=== PATIENT | male | born 1955 | race Hispanic/Latino ===

== ENCOUNTER 2018-03-20 18:55 | Inpatient (IN) | payer SELFPAY ==
[~2018-03-20] VITALS: Ht 167.6 cm; Wt 82.9 kg
[~2018-03-20 18:55] MED LIST: AA8/1CAP3 PO; ACET1TAB12 PO; AMLO10TA6 PO; AMLO5TAB7 PO; AMOX-429 PO; DIGO250T84 PO; Folic Acid/Vitamin B Comp W-C PO; HYDR-4154 PO; MIRAUD PO; TAMS0.4C32 PO; super beta prostate PO
[2018-03-20] MEDS ORDERED: SODIUM CHLORIDE 0.9% 1000ML 2,000 ML IV ONE (19:54)
[2018-03-20] MEDS ORDERED: LACTULOSE 20 GM/30 ML UDCUP ONE (19:54)
[2018-03-20] MEDS ORDERED: ONDANSETRON HCL 4 MG/2 ML VIAL ONE (19:54)
[2018-03-20] MEDS ORDERED: MORPHINE SULFATE 4 MG/1ML SYG ONE (19:55)
[2018-03-20 19:58] LABS: APPEARANCE,URINE Clear (CLEAR); BILIRUBIN,URINE Negative (NEGATIVE); COLOR,URINE Yellow (YELLOW); GLUCOSE, URINE (UA) >=1000 mg/dL (NEGATIVE); KETONES,URINE Negative (NEGATIVE); LEUKOCYTE ESTERASE ,URINE Negative (NEGATIVE); NITRATE,URINE Negative (NEGATIVE); OCCULT BLOOD,URINE Negative (NEGATIVE); PH,URINE 5.5 (5.0-8.0); PROTEIN,URINE POS 2+ (NEGATIVE); UROBILINOGEN,URINE 0.2 mg/dL (0.2-1.0)
[2018-03-20 20:00] LABS: BASOPHILS % (AUTO) 0.6 % (0.0-5.0); HEMATOCRIT 32.9 % (42-54); LYMPHOCYTES % (AUTO) 14.4 % (21.0-51.0); MEAN CORPUSCULAR HEMOGLOBIN 32.1 pg (27.0-33.0); MEAN CORPUSCULAR HGB CONC 37.4 g/dL (32.0-36.0); MEAN CORPUSCULAR VOLUME 85.8 fL (79-99); MONOCYTES % (AUTO) 5.2 % (3.0-13.0); NEUTROPHILS % (AUTO) 77.8 % (40.0-77.0); PLATELET COUNT (AUTO) 197 K/uL (130-400); RED BLOOD CELL COUNT(AUTO) 3.83 MIL/uL (4.50-6.20); RED CELL DISTRIBUTION WIDTH 13.1 % (11.0-15.5); WHITE BLOOD COUNT (AUTO) 12.3 K/uL (4.8-10.8)
[2018-03-20 20:01] LABS: ABG OXYGEN SATURATION 94.9 % (95.0-99.0); BASE EXCESS,VENOUS BLOOD GAS -0.8 (-2.0-3.0); PCO2,VENOUS BLOOD GAS 40 (35-48); PH,VENOUS BLOOD GAS 7.396 (7.350-7.450)
[2018-03-20 20:09] LABS: BACTERIA,URINE Rare /HPF (None Seen); RBC,URINE None Seen /HPF (0-1); WBC,URINE 0-1 /HPF (0-1)
[2018-03-20 20:10] LABS: SQUAMOUS EPITHELIAL CELL,UR 0-2 /HPF (0-2)
[2018-03-20 20:16] LABS: ALBUMIN 2.6 g/dL (3.5-5.0); BILIRUBIN,TOTAL 1.1 mg/dL (0.2-1.0); CREATININE 3.1 mg/dL (0.5-1.5)
[2018-03-20 20:49] LABS: TOTAL PROTEIN, SERUM 4.8 g/dL (6.0-8.3)
[2018-03-20] MEDS ORDERED: INSULIN HUMULIN R 100 UNIT/ML 3ML ONE (21:03)
[2018-03-20 23:00] VITALS: BP 188/85
[2018-03-21] MEDS ORDERED: HYDROMORPHONE 1 MG/1 ML AMP ONE ×3 (00:32→17:10)
[2018-03-21] MEDS ORDERED: SODIUM CHLORIDE 0.9% 1000ML 1,000 ML IV SCH (00:36)
[2018-03-21] MEDS ORDERED: HYDROMORPHONE HCL 0.5 MG/0.5 ML ML IVP PRN (00:45)
[2018-03-21 02:15] VITALS: BP 144/77
[2018-03-21 03:42] VITALS: BP 151/72
[2018-03-21 06:14] LABS: HEMATOCRIT 31.5 % (42-54); MEAN CORPUSCULAR HEMOGLOBIN 31.2 pg (27.0-33.0); MEAN CORPUSCULAR HGB CONC 36.1 g/dL (32.0-36.0); MEAN CORPUSCULAR VOLUME 86.3 fL (79-99); PLATELET COUNT (AUTO) 195 K/uL (130-400); RED BLOOD CELL COUNT(AUTO) 3.65 MIL/uL (4.50-6.20); RED CELL DISTRIBUTION WIDTH 13.1 % (11.0-15.5); WHITE BLOOD COUNT (AUTO) 11.5 K/uL (4.8-10.8)
[2018-03-21] MEDS ORDERED: GLUCAGON 1MG KIT 1 MG ML IM PRN (06:15)
[2018-03-21] MEDS ORDERED: DEXTROSE 50%-WATER 50 ML DISP.SYRIN IV PRN (06:15)
[2018-03-21 06:24] LABS: ALBUMIN 2.4 g/dL (3.5-5.0); BILIRUBIN,TOTAL 0.3 mg/dL (0.2-1.0); CREATININE 2.7 mg/dL (0.5-1.5); POTASSIUM 4.4 mmol/L (3.5-5.1)
[2018-03-21 07:06] LABS: HEMOGLOBIN A1C 11.5 % (4.0-6.0)
[2018-03-21] MEDS: INSULIN HUMULIN R 100 UNIT/ML 3ML SQ SCH ×3 (07:08→16:30)
[2018-03-21] MEDS: LACTATED RINGERS 1000ML 1,000 ML IV SCH ×3 (07:15→23:15)
[2018-03-21 07:30] VITALS: BP 150/69
[2018-03-21 09:00] LABS: BAND NEUTROPHILS % (MANUAL) 1 % (0-2); LYMPHOCYTES % (MANUAL) 6 % (22-44); MAN.DIFF COMMENT-IMPRESSION MANUAL DIFFERENTIAL; MONOCYTES % (MANUAL) 2 % (2-9); PLATELET MORPHOLOGY COMMENT ADEQUATE; SEGMENTED NEUTROPHILS % 91 % (40-70)
[2018-03-21] MEDS: FAMOTIDINE/PF 20 MG/2 ML VIAL IV SCH (09:55)
[2018-03-21] MEDS: ENOXAPARIN SODIUM 30 MG/0.3 ML SQ SCH (09:56)
[2018-03-21] MEDS: HYDROMORPHONE 1 MG/1 ML AMP ONE ×2 (09:57→11:06)
[2018-03-21 11:00] VITALS: BP 152/74
[2018-03-21] MEDS ORDERED: HYDROXYZINE HCL 25 MG TABLET PO PRN (11:45)
[2018-03-21 16:00] VITALS: BP 144/76
[2018-03-21 20:00] VITALS: BP 167/78
[2018-03-21] MEDS: HYDROMORPHONE 1 MG/1 ML AMP IVP PRN (21:26)
[2018-03-22] VITALS: BP 163/81
[2018-03-22] MEDS ORDERED: LABETALOL 20 MG/4 ML DISP.SYRIN IV SCH (01:00)
[2018-03-22] MEDS: LACTATED RINGERS 1000ML 1,000 ML IV SCH ×3 (01:16→09:32)
[2018-03-22 04:00] VITALS: BP 158/70
[2018-03-22] MEDS: INSULIN HUMULIN R 100 UNIT/ML 3ML SQ SCH ×4 (06:00→18:00)
[2018-03-22 07:30] VITALS: BP 170/74
[2018-03-22] MEDS: ENOXAPARIN SODIUM 30 MG/0.3 ML SQ SCH (09:31)
[2018-03-22] MEDS: FAMOTIDINE/PF 20 MG/2 ML VIAL IV SCH (09:31)
[2018-03-22] MEDS: HYDROMORPHONE 1 MG/1 ML AMP IVP PRN ×2 (09:34→19:49)
[2018-03-22] MEDS ORDERED: DIATR MEGLU/DIATRIZOATE SODIUM 30 ML BOTTLE ONE (10:34)
[2018-03-22] MEDS ORDERED: IOHEXOL-350 75 ML VIAL IV ONE ×2 (10:34)
[2018-03-22 11:00] VITALS: BP 175/88
[2018-03-22] MEDS: LEVOFLOXACIN 500 MG/D5W 100 ML 100 ML IV SCH (11:33)
[2018-03-22] MEDS: METRONIDAZOLE 500MG/100ML BAG 100 ML IV SCH ×2 (13:08→19:49)
[2018-03-22 16:00] VITALS: BP 175/85
[2018-03-22] MEDS: ACETYLCYSTEINE 600 MG CAPSULE PO SCH (19:23)
[2018-03-22] MEDS: SODIUM CHLORIDE 0.9% 1000ML 1,000 ML IV SCH (19:23)
[2018-03-22 20:00] VITALS: BP 169/80
[2018-03-23] VITALS (8 sets, daily range): BP systolic 126–186; BP diastolic 54–87
[2018-03-23] MEDS: HYDROMORPHONE 1 MG/1 ML AMP IVP PRN ×2 (01:56→21:52)
[2018-03-23] MEDS ORDERED: LABETALOL 20 MG/4 ML DISP.SYRIN IV PRN (02:15)
[2018-03-23] MEDS: SODIUM CHLORIDE 0.9% 1000ML 1,000 ML IV SCH ×3 (04:16→14:30)
[2018-03-23 04:46] LABS: HEMATOCRIT 31.6 % (42-54); MEAN CORPUSCULAR HEMOGLOBIN 30.9 pg (27.0-33.0); MEAN CORPUSCULAR HGB CONC 35.9 g/dL (32.0-36.0); MEAN CORPUSCULAR VOLUME 86.1 fL (79-99); NUCLEATED RED BLOOD CELLS 0.1 % (0.0-0.19); PLATELET COUNT (AUTO) 156 K/uL (130-400); RED BLOOD CELL COUNT(AUTO) 3.68 MIL/uL (4.50-6.20); RED CELL DISTRIBUTION WIDTH 13.1 % (11.0-15.5); WHITE BLOOD COUNT (AUTO) 7.1 K/uL (4.8-10.8)
[2018-03-23 04:54] LABS: BAND NEUTROPHILS % (MANUAL) 1 % (0-2); BASOPHILS % (MANUAL) 1 % (0-2); EOSINOPHILS % (MANUAL) 7 % (1-6); LYMPHOCYTES % (MANUAL) 16 % (22-44); MAN.DIFF COMMENT-IMPRESSION MANUAL DIFFERENTIAL; MONOCYTES % (MANUAL) 6 % (2-9); PLATELET MORPHOLOGY COMMENT ADEQUATE; SEGMENTED NEUTROPHILS % 69 % (40-70)
[2018-03-23 05:07] LABS: ALBUMIN 2.3 g/dL (3.5-5.0); BILIRUBIN,TOTAL 0.4 mg/dL (0.2-1.0); CREATININE 2.3 mg/dL (0.5-1.5); MAGNESIUM 1.4 mg/dL (1.80-2.40); POTASSIUM 3.5 mmol/L (3.5-5.1); URIC ACID 6.8 mg/dL (2.6-7.2)
[2018-03-23] MEDS: METRONIDAZOLE 500MG/100ML BAG 100 ML IV SCH ×3 (05:13→21:41)
[2018-03-23] MEDS: INSULIN HUMULIN R 100 UNIT/ML 3ML SQ SCH ×5 (06:00→21:47)
[2018-03-23] MEDS: ACETAMINOPHEN-CODEINE 300/30MG TAB PO PRN ×2 (09:53→18:17)
[2018-03-23] MEDS: FOLIC ACID/VITAMIN B COMP W-C 1 MG CAPSULE PO SCH (09:53)
[2018-03-23] MEDS: FAMOTIDINE/PF 20 MG/2 ML VIAL IV SCH (09:53)
[2018-03-23] MEDS: LEVOFLOXACIN 500 MG/D5W 100 ML 100 ML IV SCH (09:53)
[2018-03-23] MEDS: CLONIDINE HCL 0.1 MG TABLET PO PRN ×2 (09:53→21:33)
[2018-03-23] MEDS: ACETYLCYSTEINE 600 MG CAPSULE PO SCH ×2 (09:53→21:33)
[2018-03-23] MEDS: ENOXAPARIN SODIUM 30 MG/0.3 ML SQ SCH (09:58)
[2018-03-23] MEDS ORDERED: MAGNESIUM 2GM PREMIX 50ML 50 ML IV SCH (15:00)
[2018-03-24 04:00] VITALS: BP 139/61
[2018-03-24 04:44] LABS: BASOPHILS % (AUTO) 0.4 % (0.0-5.0); EOSINOPHILS % (AUTO) 3.3 % (0.0-8.0); HEMATOCRIT 31.1 % (42-54); LYMPHOCYTES % (AUTO) 15.7 % (21.0-51.0); MEAN CORPUSCULAR HEMOGLOBIN 29.8 pg (27.0-33.0); MEAN CORPUSCULAR HGB CONC 34.7 g/dL (32.0-36.0); MONOCYTES % (AUTO) 9.6 % (3.0-13.0); PLATELET COUNT (AUTO) 148 K/uL (130-400); RED BLOOD CELL COUNT(AUTO) 3.62 MIL/uL (4.50-6.20); RED CELL DISTRIBUTION WIDTH 13.2 % (11.0-15.5); WHITE BLOOD COUNT (AUTO) 6.9 K/uL (4.8-10.8)
[2018-03-24 05:00] LABS: ALBUMIN 2.3 g/dL (3.5-5.0); BILIRUBIN,TOTAL 0.3 mg/dL (0.2-1.0); CREATININE 2.7 mg/dL (0.5-1.5); MAGNESIUM 1.9 mg/dL (1.80-2.40); POTASSIUM 3.8 mmol/L (3.5-5.1)
[2018-03-24] MEDS: METRONIDAZOLE 500MG/100ML BAG 100 ML IV SCH (06:26)
[2018-03-24] MEDS: INSULIN HUMULIN R 100 UNIT/ML 3ML SQ SCH ×3 (06:26→17:33)
[2018-03-24 08:27] VITALS: BP 162/67
[2018-03-24] MEDS ORDERED: METFORMIN HCL 500 MG TAB.SR.24H PO SCH (08:45)
[2018-03-24] MEDS ORDERED: LEVOFLOXACIN 500 MG TABLET PO SCH (09:00)
[2018-03-24] MEDS ORDERED: METRONIDAZOLE 500 MG TABLET PO SCH (09:00)
[2018-03-24] MEDS ORDERED: FAMOTIDINE 20MG TAB 20 MG TAB PO SCH (09:00)
[2018-03-24] MEDS ORDERED: INSULIN GLARGINE 100 UNITS/ML 10 ML VIAL SQ SCH (09:00)
[2018-03-24] MEDS: ACETYLCYSTEINE 600 MG CAPSULE PO SCH (09:58)
[2018-03-24] MEDS: ENOXAPARIN SODIUM 30 MG/0.3 ML SQ SCH (10:02)
[2018-03-24] MEDS: FOLIC ACID/VITAMIN B COMP W-C 1 MG CAPSULE PO SCH (10:02)
[2018-03-24 12:12] VITALS: BP 160/67
[2018-03-24] MEDS ORDERED: METR500T PO ×2 (16:51→16:52)
[2018-03-24] MEDS ORDERED: LEVO500T2 PO (16:51)
[2018-03-24 17:16] VITALS: BP 180/84
[2018-03-24] MEDS: HYDROMORPHONE 1 MG/1 ML AMP IVP PRN (17:21)
[2018-03-24 19:33] VITALS: BP 162/79
[2018-03-24] MEDS ORDERED: HYDRALAZINE HCL 25 MG TABLET PO SCH (21:00)
[2018-03-24] MEDS ORDERED: AMLODIPINE BESYLATE 5 MG TAB PO SCH (21:00)
[2018-03-25] MEDS ORDERED: DIGOXIN 250 MCG TABLET PO SCH (09:00)
[2018-03-25] MEDS ORDERED: TAMSULOSIN HCL 0.4 MG CAP.ER.24H PO SCH (09:00)
[2018-03-25] MEDS ORDERED: FOLIC ACID/VITAMIN B COMP W-C 1 MG CAPSULE PO SCH (09:00)
== END 2018-03-24 20:52 | disposition home or self-care (01) | DRG 682 ==
LOC: EDH 18:55 → EDHIP 18:56 → OBSVTOIN 18:56 → 3DH 22:32
PROVIDERS: ADMIT Hospitalist; ATTEND Hospitalist
PROC: 3E0234Z Introduction of Serum, Toxoid and Vaccine into Muscle, Percutaneous Approach (ICD-10-PCS; principal; 2018-03-21)
DX: N17.9 Acute kidney failure, unspecified (principal); K85.90 Acute pancreatitis without necrosis or infection, unspecified; N39.0 Urinary tract infection, site not specified; E87.1 Hypo-osmolality and hyponatremia; E87.2 Acidosis; J98.11 Atelectasis; E11.65 Type 2 diabetes mellitus with hyperglycemia; K57.90 Diverticulosis of intestine, part unspecified, without perforation or abscess without bleeding; E11.22 Type 2 diabetes mellitus with diabetic chronic kidney disease; D64.9 Anemia, unspecified; I12.9 Hypertensive chronic kidney disease with stage 1 through stage 4 chronic kidney disease, or unspecified chronic kidney disease; K76.0 Fatty (change of) liver, not elsewhere classified; N18.9 Chronic kidney disease, unspecified; N40.0 Benign prostatic hyperplasia without lower urinary tract symptoms; Z91.19 Patient's noncompliance with other medical treatment and regimen; Z87.442 Personal history of urinary calculi; Z90.49 Acquired absence of other specified parts of digestive tract; Z79.899 Other long term (current) drug therapy; Z83.3 Family history of diabetes mellitus; Z82.49 Family history of ischemic heart disease and other diseases of the circulatory system; Z82.3 Family history of stroke; Z87.891 Personal history of nicotine dependence; Z79.84 Long term (current) use of oral hypoglycemic drugs; Z23 Encounter for immunization
CPT/HCPCS: 36415; 36600; 74176; 74178; 76705; 80053; 81001; 82150; 82330; 82435; 82803; 82947; 82948; 83036; 83605; 83690; 83735; 84100; 84132; 84295; 84484; 84550; 85025; 87040; 93005; G0008; J1170; J1650; J1815; J1956; J2270; J2405; J3475; J3490; J7030; J7120; Q2038; Q9963; Q9967

== ENCOUNTER 2018-05-17 17:59 | Inpatient (IN) | payer SELFPAY ==
[~2018-05-17] VITALS: Ht 175.3 cm; Wt 80.9 kg
[~2018-05-17 17:59] MED LIST changes: -ACET1TAB12 PO; -AMLO10TA6 PO; -AMOX-429 PO; +LEVO500T2 PO; +METR500T PO; -super beta prostate PO
[2018-05-17] MEDS ORDERED: ONDANSETRON HCL 4 MG/2 ML VIAL ONE (18:33)
[2018-05-17] MEDS ORDERED: SODIUM CHLORIDE 0.9% 1000ML 1,000 ML IV ONE (18:33)
[2018-05-17] MEDS ORDERED: HYDROMORPHONE 1 MG/1 ML AMP ONE (18:34)
[2018-05-17 18:38] LABS: BASOPHILS % (AUTO) 0.9 % (0.0-5.0); EOSINOPHILS % (AUTO) 2.6 % (0.0-8.0); HEMATOCRIT 38.6 % (42-54); LYMPHOCYTES % (AUTO) 20.3 % (21.0-51.0); MEAN CORPUSCULAR HEMOGLOBIN 31.2 pg (27.0-33.0); MEAN CORPUSCULAR HGB CONC 35.2 g/dL (32.0-36.0); MEAN CORPUSCULAR VOLUME 88.6 fL (79-99); MONOCYTES % (AUTO) 8.5 % (3.0-13.0); NEUTROPHILS % (AUTO) 67.7 % (40.0-77.0); PLATELET COUNT (AUTO) 247 K/uL (130-400); RED BLOOD CELL COUNT(AUTO) 4.35 MIL/uL (4.50-6.20); WHITE BLOOD COUNT (AUTO) 9.4 K/uL (4.8-10.8)
[2018-05-17 18:54] LABS: CREATININE 2.8 mg/dL (0.5-1.5); POTASSIUM 4.3 mmol/L (3.5-5.1)
[2018-05-17 18:58] LABS: ALBUMIN 3.4 g/dL (3.5-5.0); BILIRUBIN,TOTAL 0.2 mg/dL (0.2-1.0); TOTAL PROTEIN, SERUM 6.9 g/dL (6.0-8.3)
[2018-05-17] MEDS ORDERED: ACETAMINOPHEN 325 MG TAB PO PRN (19:45)
[2018-05-17] MEDS ORDERED: AMLODIPINE BESYLATE 5 MG TAB PO ONE (20:12)
[2018-05-17] MEDS ORDERED: MORPHINE SULFATE 4 MG/1ML SYG ONE (20:13)
[2018-05-17] MEDS ORDERED: FAMOTIDINE/PF 20 MG/2 ML VIAL IV ONE (20:14)
[2018-05-17] MEDS: AMLODIPINE BESYLATE 5 MG TAB PO SCH (21:00)
[2018-05-17] MEDS: HYDRALAZINE HCL 25 MG TABLET PO SCH (21:00)
[2018-05-17 21:45] VITALS: BP 180/84
[2018-05-17] MEDS ORDERED: CLONIDINE HCL 0.1 MG TABLET ONE (22:29)
[2018-05-17] MEDS ORDERED: LORAZEPAM 2 MG/ML 1 ML VIAL IVP PRN (22:30)
[2018-05-17] MEDS: SODIUM CHLORIDE 0.9% 1000ML 1,000 ML IV SCH (22:35)
[2018-05-17] MEDS: ONDANSETRON HCL 4 MG/2 ML VIAL IV PRN (23:11)
[2018-05-17] MEDS ORDERED: LISI40TA4 PO (23:29)
[2018-05-17] MEDS ORDERED: METF-444 PO (23:29)
[2018-05-17] MEDS ORDERED: GABA-531 PO (23:31)
[2018-05-18] VITALS (7 sets, daily range): BP systolic 138–176; BP diastolic 69–82
[2018-05-18] MEDS: MORPHINE SULFATE 4 MG/1ML SYG IV PRN ×3 (00:36→22:56)
[2018-05-18 05:18] LABS: BASOPHILS % (AUTO) 0.5 % (0.0-5.0); EOSINOPHILS % (AUTO) 2.3 % (0.0-8.0); HEMATOCRIT 34.2 % (42-54); LYMPHOCYTES % (AUTO) 17.1 % (21.0-51.0); MEAN CORPUSCULAR HEMOGLOBIN 31.2 pg (27.0-33.0); MEAN CORPUSCULAR HGB CONC 35.3 g/dL (32.0-36.0); MEAN CORPUSCULAR VOLUME 88.3 fL (79-99); MONOCYTES % (AUTO) 7.3 % (3.0-13.0); NEUTROPHILS % (AUTO) 72.8 % (40.0-77.0); PLATELET COUNT (AUTO) 208 K/uL (130-400); RED BLOOD CELL COUNT(AUTO) 3.87 MIL/uL (4.50-6.20); RED CELL DISTRIBUTION WIDTH 15.3 % (11.0-15.5); WHITE BLOOD COUNT (AUTO) 8.9 K/uL (4.8-10.8)
[2018-05-18 05:31] LABS: ALBUMIN 2.8 g/dL (3.5-5.0); BILIRUBIN,TOTAL 0.3 mg/dL (0.2-1.0); CREATININE 2.6 mg/dL (0.5-1.5); POTASSIUM 4.5 mmol/L (3.5-5.1); TOTAL PROTEIN, SERUM 6.1 g/dL (6.0-8.3)
[2018-05-18] MEDS: SODIUM CHLORIDE 0.9% 1000ML 1,000 ML IV SCH (07:20)
[2018-05-18 09:24] LABS: CHOLESTEROL 226 mg/dL (<200); HDL CHOLESTEROL 22 mg/dL (29-71); LDL DIRECT 58 mg/dL (0-99); TRIGLYCERIDES 971 mg/dL (30-200)
[2018-05-18] MEDS: LACTATED RINGERS 1000ML 1,000 ML IV SCH ×3 (09:38→21:17)
[2018-05-18] MEDS: HYDRALAZINE HCL 25 MG TABLET PO SCH ×2 (09:39→21:12)
[2018-05-18] MEDS: ENOXAPARIN SODIUM 30 MG/0.3 ML SQ SCH (09:39)
[2018-05-18] MEDS: TAMSULOSIN HCL 0.4 MG CAP.ER.24H PO SCH (09:40)
[2018-05-18] MEDS: AMLODIPINE BESYLATE 5 MG TAB PO SCH ×2 (09:40→21:12)
[2018-05-18] MEDS: FAMOTIDINE/PF 20 MG/2 ML VIAL IV SCH (09:40)
[2018-05-18] MEDS ORDERED: KETOROLAC TROMETHAMINE 15MG/ML IV SCH (14:30)
[2018-05-18] MEDS: DIGOXIN 250 MCG TABLET PO SCH (16:00)
[2018-05-19] VITALS (7 sets, daily range): BP systolic 140–176; BP diastolic 53–77
[2018-05-19] MEDS: CLONIDINE HCL 0.1 MG TABLET PO PRN (00:21)
[2018-05-19 04:25] LABS: BASOPHILS % (AUTO) 0.7 % (0.0-5.0); HEMATOCRIT 35.7 % (42-54); LYMPHOCYTES % (AUTO) 24.4 % (21.0-51.0); MEAN CORPUSCULAR HEMOGLOBIN 30.4 pg (27.0-33.0); MEAN CORPUSCULAR HGB CONC 34.4 g/dL (32.0-36.0); MEAN CORPUSCULAR VOLUME 88.4 fL (79-99); MONOCYTES % (AUTO) 8.6 % (3.0-13.0); NEUTROPHILS % (AUTO) 63.3 % (40.0-77.0); NUCLEATED RED BLOOD CELLS 0.1 % (0.0-0.19); PLATELET COUNT (AUTO) 185 K/uL (130-400); RED BLOOD CELL COUNT(AUTO) 4.04 MIL/uL (4.50-6.20); RED CELL DISTRIBUTION WIDTH 15.1 % (11.0-15.5)
[2018-05-19 04:48] LABS: CREATININE 2.7 mg/dL (0.5-1.5); POTASSIUM 4.4 mmol/L (3.5-5.1)
[2018-05-19] MEDS: AMLODIPINE BESYLATE 5 MG TAB PO SCH ×2 (09:42→23:05)
[2018-05-19] MEDS: TAMSULOSIN HCL 0.4 MG CAP.ER.24H PO SCH (09:42)
[2018-05-19] MEDS: HYDRALAZINE HCL 25 MG TABLET PO SCH ×2 (09:46→23:06)
[2018-05-19] MEDS: FAMOTIDINE/PF 20 MG/2 ML VIAL IV SCH (09:46)
[2018-05-19] MEDS: MORPHINE SULFATE 4 MG/1ML SYG IV PRN (09:47)
[2018-05-19] MEDS: ENOXAPARIN SODIUM 30 MG/0.3 ML SQ SCH (09:48)
[2018-05-19] MEDS: LACTULOSE 20 GM/30 ML UDCUP PO PRN (09:51)
[2018-05-19] MEDS: LACTATED RINGERS 1000ML 1,000 ML IV SCH ×2 (09:54→23:06)
[2018-05-19] MEDS ORDERED: PHARMACY COMMUNICATION MISC SCH (12:00)
[2018-05-19] MEDS: ONDANSETRON HCL 4 MG/2 ML VIAL IV PRN (12:21)
[2018-05-19] MEDS ORDERED: DIPHENHYDRAMINE HCL 2% 30 GM CREAM.GM. TP PRN (12:30)
[2018-05-19] MEDS: FENOFIBRATE NANOCRYSTALLIZED 48 MG TAB PO SCH (13:48)
[2018-05-19] MEDS: DIGOXIN 250 MCG TABLET PO SCH (17:10)
[2018-05-19] MEDS ORDERED: GLUCAGON 1MG KIT 1 MG ML IM PRN (22:00)
[2018-05-19] MEDS ORDERED: DEXTROSE 50%-WATER 50 ML DISP.SYRIN IV PRN (22:00)
[2018-05-20] VITALS (7 sets, daily range): BP systolic 152–181; BP diastolic 70–78
[2018-05-20 04:42] LABS: BASOPHILS % (AUTO) 0.8 % (0.0-5.0); EOSINOPHILS % (AUTO) 2.4 % (0.0-8.0); HEMATOCRIT 35.6 % (42-54); LYMPHOCYTES % (AUTO) 20.2 % (21.0-51.0); MEAN CORPUSCULAR VOLUME 88.5 fL (79-99); MONOCYTES % (AUTO) 9.9 % (3.0-13.0); NEUTROPHILS % (AUTO) 66.7 % (40.0-77.0); NUCLEATED RED BLOOD CELLS 0.1 % (0.0-0.19); PLATELET COUNT (AUTO) 218 K/uL (130-400); RED BLOOD CELL COUNT(AUTO) 4.02 MIL/uL (4.50-6.20); WHITE BLOOD COUNT (AUTO) 7.9 K/uL (4.8-10.8)
[2018-05-20 04:51] LABS: HEMOGLOBIN A1C 7.4 % (4.0-6.0)
[2018-05-20 04:54] LABS: CREATININE 2.8 mg/dL (0.5-1.5); POTASSIUM 4.2 mmol/L (3.5-5.1)
[2018-05-20] MEDS: INSULIN HUMULIN R 100 UNIT/ML 3ML SQ SCH ×4 (07:14→21:01)
[2018-05-20] MEDS: FENOFIBRATE NANOCRYSTALLIZED 48 MG TAB PO SCH (10:33)
[2018-05-20] MEDS: AMLODIPINE BESYLATE 5 MG TAB PO SCH ×2 (10:33→20:59)
[2018-05-20] MEDS: FAMOTIDINE/PF 20 MG/2 ML VIAL IV SCH (10:33)
[2018-05-20] MEDS: HYDRALAZINE HCL 25 MG TABLET PO SCH ×2 (10:33→20:59)
[2018-05-20] MEDS: TAMSULOSIN HCL 0.4 MG CAP.ER.24H PO SCH (10:33)
[2018-05-20] MEDS: ENOXAPARIN SODIUM 30 MG/0.3 ML SQ SCH (10:39)
[2018-05-20] MEDS: LACTATED RINGERS 1000ML 1,000 ML IV SCH ×3 (11:03→21:21)
[2018-05-20] MEDS: DIGOXIN 250 MCG TABLET PO SCH (16:00)
[2018-05-20] MEDS: MORPHINE SULFATE 4 MG/1ML SYG IV PRN (17:18)
[2018-05-20] MEDS: CLONIDINE HCL 0.1 MG TABLET PO PRN (23:54)
[2018-05-21] VITALS (7 sets, daily range): BP systolic 144–188; BP diastolic 59–85
[2018-05-21 05:10] LABS: BASOPHILS % (AUTO) 0.6 % (0.0-5.0); EOSINOPHILS % (AUTO) 2.4 % (0.0-8.0); HEMATOCRIT 35.5 % (42-54); MEAN CORPUSCULAR HEMOGLOBIN 30.3 pg (27.0-33.0); MEAN CORPUSCULAR HGB CONC 34.8 g/dL (32.0-36.0); NUCLEATED RED BLOOD CELLS 0.1 % (0.0-0.19); PLATELET COUNT (AUTO) 201 K/uL (130-400); RED BLOOD CELL COUNT(AUTO) 4.07 MIL/uL (4.50-6.20); RED CELL DISTRIBUTION WIDTH 15.1 % (11.0-15.5); WHITE BLOOD COUNT (AUTO) 7.5 K/uL (4.8-10.8)
[2018-05-21] MEDS: LACTATED RINGERS 1000ML 1,000 ML IV SCH ×2 (05:45→16:32)
[2018-05-21] MEDS: INSULIN HUMULIN R 100 UNIT/ML 3ML SQ SCH ×4 (06:16→21:00)
[2018-05-21] MEDS: FENOFIBRATE NANOCRYSTALLIZED 48 MG TAB PO SCH (09:45)
[2018-05-21] MEDS: AMLODIPINE BESYLATE 5 MG TAB PO SCH ×2 (09:45→20:19)
[2018-05-21] MEDS: TAMSULOSIN HCL 0.4 MG CAP.ER.24H PO SCH (09:45)
[2018-05-21] MEDS: HYDRALAZINE HCL 25 MG TABLET PO SCH ×2 (09:45→20:20)
[2018-05-21] MEDS: FAMOTIDINE/PF 20 MG/2 ML VIAL IV SCH (09:46)
[2018-05-21] MEDS: ENOXAPARIN SODIUM 30 MG/0.3 ML SQ SCH (09:46)
[2018-05-21] MEDS: DIGOXIN 250 MCG TABLET PO SCH (16:00)
[2018-05-21] MEDS: LACTULOSE 20 GM/30 ML UDCUP PO PRN (18:32)
[2018-05-21] MEDS: CLONIDINE HCL 0.1 MG TABLET PO PRN (21:40)
[2018-05-22] MEDS: LACTATED RINGERS 1000ML 1,000 ML IV SCH ×3 (01:44→22:08)
[2018-05-22 03:18] VITALS: BP 155/58
[2018-05-22] MEDS: INSULIN HUMULIN R 100 UNIT/ML 3ML SQ SCH ×4 (06:18→20:08)
[2018-05-22 07:00] VITALS: BP 149/73
[2018-05-22] MEDS: FENOFIBRATE NANOCRYSTALLIZED 48 MG TAB PO SCH (08:57)
[2018-05-22] MEDS: FAMOTIDINE/PF 20 MG/2 ML VIAL IV SCH (08:57)
[2018-05-22] MEDS: AMLODIPINE BESYLATE 5 MG TAB PO SCH ×2 (08:57→20:04)
[2018-05-22] MEDS: HYDRALAZINE HCL 25 MG TABLET PO SCH ×2 (08:57→20:04)
[2018-05-22] MEDS: TAMSULOSIN HCL 0.4 MG CAP.ER.24H PO SCH (08:57)
[2018-05-22] MEDS: ENOXAPARIN SODIUM 30 MG/0.3 ML SQ SCH (09:01)
[2018-05-22 11:00] VITALS: BP 140/72
[2018-05-22] MEDS: MORPHINE SULFATE 4 MG/1ML SYG IV PRN ×3 (11:54→23:52)
[2018-05-22 16:00] VITALS: BP 156/82
[2018-05-22] MEDS: DIGOXIN 250 MCG TABLET PO SCH (16:00)
[2018-05-22 20:00] VITALS: BP 157/75
[2018-05-22] MEDS: ONDANSETRON HCL 4 MG/2 ML VIAL IV PRN (20:03)
[2018-05-22 23:30] VITALS: BP 174/76
[2018-05-22] MEDS: CLONIDINE HCL 0.1 MG TABLET PO PRN (23:51)
[2018-05-23 04:00] VITALS: BP 135/63
[2018-05-23] MEDS: INSULIN HUMULIN R 100 UNIT/ML 3ML SQ SCH ×3 (05:57→16:30)
[2018-05-23] MEDS: LACTATED RINGERS 1000ML 1,000 ML IV SCH (06:07)
[2018-05-23 07:30] VITALS: BP 171/78
[2018-05-23] MEDS ORDERED: FENO48TA15 PO (08:24)
[2018-05-23] MEDS: TAMSULOSIN HCL 0.4 MG CAP.ER.24H PO SCH (09:35)
[2018-05-23] MEDS: AMLODIPINE BESYLATE 5 MG TAB PO SCH (09:35)
[2018-05-23] MEDS: HYDRALAZINE HCL 25 MG TABLET PO SCH (09:35)
[2018-05-23] MEDS: FAMOTIDINE/PF 20 MG/2 ML VIAL IV SCH (09:36)
[2018-05-23] MEDS: ENOXAPARIN SODIUM 30 MG/0.3 ML SQ SCH (09:36)
[2018-05-23] MEDS: FENOFIBRATE NANOCRYSTALLIZED 48 MG TAB PO SCH (09:50)
[2018-05-23] MEDS: LACTULOSE 20 GM/30 ML UDCUP PO PRN (09:50)
[2018-05-23 11:00] VITALS: BP 172/79
[2018-05-23 16:00] VITALS: BP 179/75
[2018-05-23] MEDS: DIGOXIN 250 MCG TABLET PO SCH (16:00)
== END 2018-05-23 19:55 | disposition home or self-care (01) | DRG 439 ==
LOC: EDH 17:59 → OBSVTOIN 18:00 → EDHIP 18:00 → INTOOBSV 18:00 → 3CH 21:01
PROVIDERS: ADMIT Internal Medicine; ATTEND Internal Medicine
DX: K85.90 Acute pancreatitis without necrosis or infection, unspecified (principal); J98.11 Atelectasis; J20.9 Acute bronchitis, unspecified; E78.5 Hyperlipidemia, unspecified; E78.1 Pure hyperglyceridemia; E11.9 Type 2 diabetes mellitus without complications; E86.1 Hypovolemia; I10 Essential (primary) hypertension; L92.9 Granulomatous disorder of the skin and subcutaneous tissue, unspecified; L25.8 Unspecified contact dermatitis due to other agents; F17.210 Nicotine dependence, cigarettes, uncomplicated; Z87.442 Personal history of urinary calculi; Z82.3 Family history of stroke; Z83.3 Family history of diabetes mellitus; Z82.49 Family history of ischemic heart disease and other diseases of the circulatory system
CPT/HCPCS: 36415; 71045; 71250; 74150; 80048; 80053; 80061; 80162; 82150; 82948; 83036; 83605; 83690; 84484; 85025; 93005; J1170; J1650; J1815; J1885; J2270; J2405; J3490; J7030; J7120

== ENCOUNTER 2018-06-14 14:09 | Inpatient (IN) | payer SELFPAY ==
[~2018-06-14] VITALS: Ht 175.3 cm; Wt 83.2 kg
[~2018-06-14 14:09] MED LIST changes: -AA8/1CAP3 PO; +FENO48TA15 PO; -Folic Acid/Vitamin B Comp W-C PO; +GABA-531 PO; -LEVO500T2 PO; +LISI40TA4 PO; +METF-444 PO; -METR500T PO; -MIRAUD PO
[2018-06-14 15:10] LABS: BASOPHILS % (AUTO) 0.3 % (0.0-5.0); EOSINOPHILS % (AUTO) 1.4 % (0.0-8.0); LYMPHOCYTES % (AUTO) 12.4 % (21.0-51.0); MEAN CORPUSCULAR HEMOGLOBIN 30.3 pg (27.0-33.0); MEAN CORPUSCULAR HGB CONC 34.7 g/dL (32.0-36.0); MEAN CORPUSCULAR VOLUME 87.4 fL (79-99); MONOCYTES % (AUTO) 8.4 % (3.0-13.0); NEUTROPHILS % (AUTO) 77.5 % (40.0-77.0); NUCLEATED RED BLOOD CELLS 0.1 % (0.0-0.19); PLATELET COUNT (AUTO) 195 K/uL (130-400); RED BLOOD CELL COUNT(AUTO) 4.23 MIL/uL (4.50-6.20)
[2018-06-14] MEDS ORDERED: IOHEXOL-350 75 ML VIAL IV ONE (15:16)
[2018-06-14 15:19] LABS: BILIRUBIN,URINE Negative (NEGATIVE); COLOR,URINE Dark Yellow (YELLOW); GLUCOSE, URINE (UA) TRACE mg/dL (NEGATIVE); KETONES,URINE Negative (NEGATIVE); LEUKOCYTE ESTERASE ,URINE Negative (NEGATIVE); NITRATE,URINE Positive (NEGATIVE); OCCULT BLOOD,URINE Negative (NEGATIVE); PH,URINE 5.5 (5.0-8.0); PROTEIN,URINE 300 (NEGATIVE)
[2018-06-14 15:21] LABS: CREATININE 3.2 mg/dL (0.5-1.5); POTASSIUM 4.2 mmol/L (3.5-5.1)
[2018-06-14 15:22] LABS: APPEARANCE,URINE SLIGHTLY CLOUDY (CLEAR)
[2018-06-14 15:25] LABS: ALBUMIN 3.2 g/dL (3.5-5.0); BILIRUBIN,TOTAL 0.4 mg/dL (0.2-1.0)
[2018-06-14 15:34] LABS: RBC,URINE 0-1 /HPF (0-1); WBC,URINE 0-1 /HPF (0-1)
[2018-06-14 15:35] LABS: BACTERIA,URINE Rare /HPF (None Seen); SQUAMOUS EPITHELIAL CELL,UR Rare /HPF (0-2)
[2018-06-14 15:37] LABS: AMORPHOUS SEDIMENT,UR Rare /LPF (None Seen)
[2018-06-14] MEDS ORDERED: METRONIDAZOLE 500MG/100ML BAG 100 ML ONE (17:07)
[2018-06-14] MEDS ORDERED: SODIUM CHLORIDE 0.9% 1000ML 1,000 ML IV ONE (17:07)
[2018-06-14] MEDS ORDERED: ONDANSETRON HCL 4 MG/2 ML VIAL ONE (17:07)
[2018-06-14] MEDS ORDERED: MORPHINE SULFATE 4 MG/1ML SYG ONE (17:08)
[2018-06-14] MEDS ORDERED: MORPHINE SULFATE 4 MG/1ML SYG IV PRN (18:45)
[2018-06-14] MEDS ORDERED: MORPHINE SULFATE 2 MG/ML 1ML SYG IV PRN (18:45)
[2018-06-14] MEDS ORDERED: ACETAMINOPHEN 325 MG TAB PO PRN (18:45)
[2018-06-14 19:20] LABS: HEMOGLOBIN A1C 7.2 % (4.0-6.0)
[2018-06-14 19:27] LABS: % IRON SATURATION 13.1 % (30-44)
[2018-06-14 20:45] VITALS: BP 161/69
[2018-06-14] MEDS ORDERED: INSULIN HUMULIN R 100 UNIT/ML 3ML SQ SCH (21:00)
[2018-06-14] MEDS ORDERED: DEXTROSE 50%-WATER 50 ML DISP.SYRIN IV PRN (21:15)
[2018-06-14] MEDS ORDERED: LEVOFLOXACIN 750 MG/D5W 150 ML 150 ML IV SCH (21:15)
[2018-06-14] MEDS ORDERED: GLUCAGON 1MG KIT 1 MG ML IM PRN (21:15)
[2018-06-14] MEDS ORDERED: COMPOUND IV MISC 1 EACH IVSOLN MISC PRN (21:30)
[2018-06-14] MEDS: SODIUM CHLORIDE 0.9% 1000ML 1,000 ML IV SCH (21:59)
[2018-06-14] MEDS: METRONIDAZOLE 500MG/100ML BAG 100 ML IV SCH (22:00)
[2018-06-14] MEDS ORDERED: HYDROMORPHONE 1 MG/1 ML AMP ONE (22:17)
[2018-06-14] MEDS ORDERED: SULF1TAB41 PO (22:49)
[2018-06-14] MEDS ORDERED: SULF1TAB42 PO (22:49)
[2018-06-14] MEDS: ONDANSETRON HCL 4 MG/2 ML VIAL IV PRN (23:32)
[2018-06-14] MEDS ORDERED: RENAL DOSE IV PRN (23:45)
[2018-06-15] VITALS (7 sets, daily range): BP systolic 150–182; BP diastolic 72–86
[2018-06-15] MEDS: SODIUM CHLORIDE 0.9% 1000ML 1,000 ML IV SCH ×2 (04:49→20:39)
[2018-06-15] MEDS: HYDROMORPHONE HCL 2 MG/ML VIAL IVP PRN ×2 (04:49→15:13)
[2018-06-15] MEDS: METRONIDAZOLE 500MG/100ML BAG 100 ML IV SCH ×3 (05:23→22:52)
[2018-06-15] MEDS: ONDANSETRON HCL 4 MG/2 ML VIAL IV PRN ×2 (05:38→10:48)
[2018-06-15] MEDS: INSULIN HUMULIN R 100 UNIT/ML 3ML SQ SCH ×4 (06:00→18:00)
[2018-06-15 08:15] LABS: HEMATOCRIT 35.7 % (42-54); MEAN CORPUSCULAR HEMOGLOBIN 30.8 pg (27.0-33.0); MEAN CORPUSCULAR HGB CONC 34.8 g/dL (32.0-36.0); MEAN CORPUSCULAR VOLUME 88.4 fL (79-99); PLATELET COUNT (AUTO) 194 K/uL (130-400); RED BLOOD CELL COUNT(AUTO) 4.03 MIL/uL (4.50-6.20); RED CELL DISTRIBUTION WIDTH 14.1 % (11.0-15.5); WHITE BLOOD COUNT (AUTO) 11.5 K/uL (4.8-10.8)
[2018-06-15] MEDS ORDERED: HYDROMORPHONE HCL 0.5 MG/0.5 ML ML IVP PRN (08:15)
[2018-06-15] MEDS: LEVOFLOXACIN 750 MG/D5W 150 ML 150 ML IV SCH (08:15)
[2018-06-15] MEDS: ENOXAPARIN SODIUM 40 MG/0.4 ML SYRINGE SQ SCH (08:16)
[2018-06-15] MEDS: PANTOPRAZOLE 40 MG/VIAL IVP SCH (08:17)
[2018-06-15] MEDS: IRON SUCROSE COMPLEX 100 MG in SODIUM CHLORIDE 0.9% 50 ML IV SCH (08:17)
[2018-06-15] MEDS: HYDRALAZINE HCL 20 MG/ML VIAL IV PRN (08:18)
[2018-06-15 08:45] LABS: CRP QUANTITATIVE 133.6 mg/L (0.00-9.0); PHOSPHORUS 3.1 mg/dL (2.5-4.9); POTASSIUM 4.7 mmol/L (3.5-5.1)
[2018-06-15] MEDS: LISINOPRIL 40 MG TABLET PO SCH (09:00)
[2018-06-15] MEDS: FENOFIBRATE NANOCRYSTALLIZED 48 MG TAB PO SCH (09:00)
[2018-06-15] MEDS: GABAPENTIN 300 MG CAPSULE PO SCH (09:00)
[2018-06-15] MEDS: DIGOXIN 250 MCG TABLET PO SCH (09:00)
[2018-06-15] MEDS: AMLODIPINE BESYLATE 5 MG TAB PO SCH ×2 (09:00→20:41)
[2018-06-15] MEDS: HYDRALAZINE HCL 25 MG TABLET PO SCH ×2 (09:00→20:41)
[2018-06-15] MEDS: TAMSULOSIN HCL 0.4 MG CAP.ER.24H PO SCH (09:00)
[2018-06-15] MEDS ORDERED: PROMETHAZINE HCL 25 MG/ML 1ML AMPULE IM PRN (12:00)
[2018-06-16] MEDS: HYDRALAZINE HCL 20 MG/ML VIAL IV PRN ×2 (01:33→16:55)
[2018-06-16] MEDS: HYDROMORPHONE HCL 2 MG/ML VIAL IVP PRN (01:34)
[2018-06-16 04:08] VITALS: BP 155/71
[2018-06-16 05:20] LABS: HEMATOCRIT 33.7 % (42-54); MEAN CORPUSCULAR HGB CONC 33.9 g/dL (32.0-36.0); MEAN CORPUSCULAR VOLUME 88.6 fL (79-99); PLATELET COUNT (AUTO) 181 K/uL (130-400); RED CELL DISTRIBUTION WIDTH 13.8 % (11.0-15.5); WHITE BLOOD COUNT (AUTO) 10.6 K/uL (4.8-10.8)
[2018-06-16 05:33] LABS: MAGNESIUM 1.8 mg/dL (1.80-2.40); PHOSPHORUS 2.2 mg/dL (2.5-4.9)
[2018-06-16] MEDS: INSULIN HUMULIN R 100 UNIT/ML 3ML SQ SCH ×4 (05:38→18:00)
[2018-06-16] MEDS: METRONIDAZOLE 500MG/100ML BAG 100 ML IV SCH ×2 (05:38→13:26)
[2018-06-16] MEDS: SODIUM CHLORIDE 0.9% 1000ML 1,000 ML IV SCH ×2 (05:39→13:26)
[2018-06-16 07:00] VITALS: BP 150/86
[2018-06-16] MEDS ORDERED: HYDROMORPHONE 1 MG/1 ML AMP ONE ×2 (09:35→16:50)
[2018-06-16] MEDS: PANTOPRAZOLE 40 MG/VIAL IVP SCH (09:45)
[2018-06-16] MEDS: ENOXAPARIN SODIUM 40 MG/0.4 ML SYRINGE SQ SCH (09:45)
[2018-06-16] MEDS ORDERED: HYDROMORPHONE HCL 2 MG/ML VIAL IVP PRN ×3 (09:45→17:45)
[2018-06-16] MEDS: AMLODIPINE BESYLATE 5 MG TAB PO SCH ×2 (09:46→20:15)
[2018-06-16] MEDS: HYDRALAZINE HCL 25 MG TABLET PO SCH ×2 (09:46→20:15)
[2018-06-16] MEDS: LISINOPRIL 40 MG TABLET PO SCH (09:46)
[2018-06-16] MEDS: IRON SUCROSE COMPLEX 100 MG in SODIUM CHLORIDE 0.9% 50 ML IV SCH (09:47)
[2018-06-16] MEDS: DIGOXIN 250 MCG TABLET PO SCH (09:59)
[2018-06-16] MEDS ORDERED: HYDROCHLOROTHIAZIDE 25 MG TABLET PO SCH (10:00)
[2018-06-16 11:00] VITALS: BP 159/99
[2018-06-16 16:00] VITALS: BP 191/78
[2018-06-16] MEDS: FENOFIBRATE NANOCRYSTALLIZED 48 MG TAB PO SCH (16:55)
[2018-06-16] MEDS: GABAPENTIN 300 MG CAPSULE PO SCH (16:56)
[2018-06-16] MEDS: TAMSULOSIN HCL 0.4 MG CAP.ER.24H PO SCH (16:56)
[2018-06-16 19:57] VITALS: BP 185/77
[2018-06-16] MEDS: MINOXIDIL 2.5 MG TAB PO SCH (20:15)
[2018-06-16] MEDS ORDERED: HYDROMORPHONE HCL 0.5 MG/0.5 ML ML IVP PRN ×2 (20:15)
[2018-06-16 23:13] VITALS: BP 169/74
[2018-06-17] VITALS (7 sets, daily range): BP systolic 134–169; BP diastolic 56–80
[2018-06-17] MEDS: METRONIDAZOLE 500MG/100ML BAG 100 ML IV SCH ×4 (00:54→21:35)
[2018-06-17] MEDS: SODIUM CHLORIDE 0.9% 1000ML 1,000 ML IV SCH (00:54)
[2018-06-17] MEDS: HYDRALAZINE HCL 20 MG/ML VIAL IV PRN (04:34)
[2018-06-17 05:40] LABS: HEMATOCRIT 34.2 % (42-54); MEAN CORPUSCULAR HGB CONC 35.5 g/dL (32.0-36.0); MEAN CORPUSCULAR VOLUME 87.5 fL (79-99); PLATELET COUNT (AUTO) 204 K/uL (130-400); RED BLOOD CELL COUNT(AUTO) 3.91 MIL/uL (4.50-6.20); RED CELL DISTRIBUTION WIDTH 13.3 % (11.0-15.5); WHITE BLOOD COUNT (AUTO) 9.1 K/uL (4.8-10.8)
[2018-06-17] MEDS: LEVOFLOXACIN 750 MG/D5W 150 ML 150 ML IV SCH (05:43)
[2018-06-17] MEDS: INSULIN HUMULIN R 100 UNIT/ML 3ML SQ SCH ×4 (05:43→18:03)
[2018-06-17 05:55] LABS: CREATININE 2.9 mg/dL (0.5-1.5); MAGNESIUM 1.8 mg/dL (1.80-2.40); PHOSPHORUS 3.1 mg/dL (2.5-4.9); POTASSIUM 3.8 mmol/L (3.5-5.1)
[2018-06-17] MEDS: IRON SUCROSE COMPLEX 100 MG in SODIUM CHLORIDE 0.9% 50 ML IV SCH (08:39)
[2018-06-17] MEDS: HYDRALAZINE HCL 25 MG TABLET PO SCH ×2 (08:40→21:35)
[2018-06-17] MEDS: AMLODIPINE BESYLATE 5 MG TAB PO SCH ×2 (08:40→21:35)
[2018-06-17] MEDS: DIGOXIN 250 MCG TABLET PO SCH (08:41)
[2018-06-17] MEDS: LISINOPRIL 40 MG TABLET PO SCH (08:41)
[2018-06-17] MEDS: MINOXIDIL 2.5 MG TAB PO SCH ×2 (08:41→21:35)
[2018-06-17] MEDS: ENOXAPARIN SODIUM 40 MG/0.4 ML SYRINGE SQ SCH (08:42)
[2018-06-17] MEDS: TAMSULOSIN HCL 0.4 MG CAP.ER.24H PO SCH (08:53)
[2018-06-17] MEDS: GABAPENTIN 300 MG CAPSULE PO SCH (08:53)
[2018-06-17] MEDS: FENOFIBRATE NANOCRYSTALLIZED 48 MG TAB PO SCH (08:53)
[2018-06-17] MEDS: PANTOPRAZOLE 40 MG/VIAL IVP SCH (09:27)
[2018-06-17] MEDS: ONDANSETRON HCL 4 MG/2 ML VIAL IV PRN (10:23)
[2018-06-17] MEDS ORDERED: LABETALOL HCL 200 MG TABLET PO SCH (13:15)
[2018-06-17] MEDS: LUBIPROSTONE 24 MCG CAP PO SCH (16:48)
[2018-06-17] MEDS: LABETALOL HCL 200 MG TABLET PO SCH (21:34)
[2018-06-18 03:41] VITALS: BP 144/59
[2018-06-18] MEDS: METRONIDAZOLE 500MG/100ML BAG 100 ML IV SCH ×2 (05:22→14:10)
[2018-06-18] MEDS: INSULIN HUMULIN R 100 UNIT/ML 3ML SQ SCH ×3 (06:00→12:34)
[2018-06-18 09:15] VITALS: BP 122/56
[2018-06-18] MEDS ORDERED: PANTOPRAZOLE SODIUM 40 MG TABLET.DR PO SCH (09:32)
[2018-06-18] MEDS: ENOXAPARIN SODIUM 40 MG/0.4 ML SYRINGE SQ SCH (10:05)
[2018-06-18] MEDS: TAMSULOSIN HCL 0.4 MG CAP.ER.24H PO SCH (10:06)
[2018-06-18] MEDS: LABETALOL HCL 200 MG TABLET PO SCH (10:06)
[2018-06-18] MEDS: HYDRALAZINE HCL 25 MG TABLET PO SCH (10:06)
[2018-06-18] MEDS: GABAPENTIN 300 MG CAPSULE PO SCH (10:07)
[2018-06-18] MEDS: LUBIPROSTONE 24 MCG CAP PO SCH (10:07)
[2018-06-18] MEDS: LISINOPRIL 40 MG TABLET PO SCH (10:07)
[2018-06-18] MEDS: FENOFIBRATE NANOCRYSTALLIZED 48 MG TAB PO SCH (10:08)
[2018-06-18] MEDS: AMLODIPINE BESYLATE 5 MG TAB PO SCH (10:08)
[2018-06-18] MEDS: IRON SUCROSE COMPLEX 100 MG in SODIUM CHLORIDE 0.9% 50 ML IV SCH (10:08)
[2018-06-18] MEDS: DIGOXIN 250 MCG TABLET PO SCH (10:08)
[2018-06-18] MEDS: MINOXIDIL 2.5 MG TAB PO SCH (10:08)
[2018-06-18] MEDS ORDERED: LEVO250S3 PO (11:38)
[2018-06-18] MEDS ORDERED: METR-152 PO (11:38)
[2018-06-18] MEDS ORDERED: LABE200T5 PO (11:45)
[2018-06-18] MEDS ORDERED: FERS325 PO (11:45)
[2018-06-18] MEDS ORDERED: MINO2.5 PO (11:45)
[2018-06-18 11:58] VITALS: BP 116/55
== END 2018-06-18 16:30 | disposition home or self-care (01) | DRG 392 ==
LOC: EDH 14:09 → EDHIP 14:10 → 3AH 20:22
PROVIDERS: ADMIT Internal Medicine; ATTEND Internal Medicine
DX: K57.32 Diverticulitis of large intestine without perforation or abscess without bleeding (principal); E87.1 Hypo-osmolality and hyponatremia; E87.2 Acidosis; N17.9 Acute kidney failure, unspecified; N18.4 Chronic kidney disease, stage 4 (severe); D72.829 Elevated white blood cell count, unspecified; E11.21 Type 2 diabetes mellitus with diabetic nephropathy; E11.22 Type 2 diabetes mellitus with diabetic chronic kidney disease; E11.42 Type 2 diabetes mellitus with diabetic polyneuropathy; E11.65 Type 2 diabetes mellitus with hyperglycemia; E78.2 Mixed hyperlipidemia; E86.1 Hypovolemia; I12.9 Hypertensive chronic kidney disease with stage 1 through stage 4 chronic kidney disease, or unspecified chronic kidney disease; N40.0 Benign prostatic hyperplasia without lower urinary tract symptoms; Z90.49 Acquired absence of other specified parts of digestive tract; Z91.14 Patient's other noncompliance with medication regimen; Z82.49 Family history of ischemic heart disease and other diseases of the circulatory system; Z82.3 Family history of stroke; Z83.3 Family history of diabetes mellitus; Z79.899 Other long term (current) drug therapy; Z79.84 Long term (current) use of oral hypoglycemic drugs
CPT/HCPCS: 36415; 74176; 76870; 80048; 80053; 81001; 82948; 83036; 83540; 83550; 83690; 83735; 84100; 85025; 85027; 86140; 87040; 87088; C9113; J0360; J1170; J1650; J1756; J1815; J1956; J2270; J2405; J2550; J3490; J7030; Q9967

== ENCOUNTER 2018-09-14 00:36 | Inpatient (IN) | payer OTHER | END 2018-09-23 13:33 | disposition home or self-care (01) | LOC: EDH 00:36 → 2CH 09-17 17:47 → 4CH 09-18 14:33 → EDHIP 03:55 | DX: A41.9 Sepsis, unspecified organism (principal); K85.80 Other acute pancreatitis without necrosis or infection; E11.22 Type 2 diabetes mellitus with diabetic chronic kidney disease; E11.65 Type 2 diabetes mellitus with hyperglycemia; E78.1 Pure hyperglyceridemia; E86.0 Dehydration; I12.9 Hypertensive chronic kidney disease with stage 1 through stage 4 chronic kidney disease, or unspecified chronic kidney disease; K59.00 Constipation, unspecified; K76.0 Fatty (change of) liver, not elsewhere classified; N20.0 Calculus of kidney; N18.9 Chronic kidney disease, unspecified; N40.0 Benign prostatic hyperplasia without lower urinary tract symptoms; Z79.4 Long term (current) use of insulin; Z91.19 Patient's noncompliance with other medical treatment and regimen ==

== ENCOUNTER 2018-12-08 18:10 | Emergency (ER) | payer OTHER ==
[~2018-12-08 18:10] MED LIST changes: -AMLO5TAB7 PO; +AMLO5TAB9 PO; -FENO48TA15 PO; +FERS325 PO; -HYDR-4154 PO; -METF-444 PO; +MINO2.5 PO
[2018-12-08] MEDS ORDERED: TETANUS/DIPHTHERIA TOXOID [ADULT] 0.5 ML VIAL IM ONE (19:17)
== END 2018-12-08 20:05 | disposition home or self-care (01) ==
LOC: EDH 18:10
DX: S01.81XA Laceration without foreign body of other part of head, initial encounter (principal); I10 Essential (primary) hypertension; E11.9 Type 2 diabetes mellitus without complications; Z98.890 Other specified postprocedural states; W18.39XA Other fall on same level, initial encounter; Y93.89 Activity, other specified; Y92.098 Other place in other non-institutional residence as the place of occurrence of the external cause; Y99.8 Other external cause status
CPT/HCPCS: 12054; 90471; 90714

== ENCOUNTER 2019-06-28 05:38 | Day surgery (SDC) | payer OTHER ==
[~2019-06-28] VITALS: Ht 175.3 cm; Wt 79.4 kg
[~2019-06-28 05:38] MED LIST changes: +ATOR20TA65 PO; +DIGO250T73 PO; -DIGO250T84 PO; +HYDR-3420 PO; +INSU100I24 SQ; -MINO2.5 PO; -TAMS0.4C32 PO
[2019-06-28] MEDS ORDERED: SODIUM CHLORIDE 0.9% 1000ML 1,000 ML IV ONE (06:28)
[2019-06-28 06:54] VITALS: BP 142/70
[2019-06-28] MEDS ORDERED: GLYCOPYRROLATE 0.2 MG/ML 5 ML VIAL ONE (07:29)
[2019-06-28] MEDS ORDERED: LIDOCAINE HCL 1% 20 ML VIAL ONE (07:29)
[2019-06-28] MEDS ORDERED: PROPOFOL 10 MG/ML 20ML VIAL IV ONE (07:30)
[2019-06-28] MEDS ORDERED: SIMETHICONE 40 MG/0.6 ML ML ONE (07:37)
[2019-06-28 07:57] VITALS: BP 128/66
[2019-06-28 08:03] VITALS: BP 138/63
[2019-06-28 08:06] VITALS: BP 130/64
[2019-06-28 08:12] VITALS: BP 132/63
== END 2019-06-28 12:00 ==
LOC: DAH 05:38 → ENDO 05:38
PROVIDERS: ATTEND Internal Medicine Gastroenterology
DX: R10.13 Epigastric pain (principal); K85.90 Acute pancreatitis without necrosis or infection, unspecified; K86.89 Other specified diseases of pancreas; I10 Essential (primary) hypertension; E78.1 Pure hyperglyceridemia; E11.9 Type 2 diabetes mellitus without complications; E78.5 Hyperlipidemia, unspecified; R74.8 Abnormal levels of other serum enzymes; Z79.899 Other long term (current) drug therapy
CPT/HCPCS: 43237; 82948 ×2; 93005; A4215; A4221; A4222; A4223; A4606; A4620; A4663; J2704; J3490; J7030

== ENCOUNTER → 2020-03-01 | Outpatient (CLI) | payer OTHER | END | disposition home or self-care (01) | LOC: RAH 12:53 | PROVIDERS: ATTEND Family Medicine | DX: N50.3 Cyst of epididymis (principal); N50.82 Scrotal pain; N50.812 Left testicular pain | CPT/HCPCS: 76870 ==

== ENCOUNTER 2020-03-02 20:31 | Emergency (ER) | payer OTHER ==
[2020-03-02 20:57] LABS: BASOPHILS % (AUTO) 0.6 % (0.0-5.0); EOSINOPHILS % (AUTO) 1.9 % (0.0-8.0); HEMATOCRIT 32.8 % (42-54); LYMPHOCYTES % (AUTO) 16.8 % (21.0-51.0); MEAN CORPUSCULAR HEMOGLOBIN 31.5 pg (27.0-33.0); MEAN CORPUSCULAR HGB CONC 37.5 g/dL (32.0-36.0); MEAN CORPUSCULAR VOLUME 83.9 fL (79-99); MONOCYTES % (AUTO) 5.8 % (3.0-13.0); NEUTROPHILS % (AUTO) 74.1 % (40.0-77.0); PLATELET COUNT (AUTO) 246 K/uL (130-400); RED BLOOD CELL COUNT(AUTO) 3.91 MIL/uL (4.50-6.20); RED CELL DISTRIBUTION WIDTH 13.4 % (11.0-15.5); WHITE BLOOD COUNT (AUTO) 12.8 K/uL (4.8-10.8)
[2020-03-02 21:08] LABS: CREATININE 4.7 mg/dL (0.5-1.5); POTASSIUM 4.8 mmol/L (3.5-5.1)
[2020-03-02 21:12] LABS: ALBUMIN 2.9 g/dL (3.5-5.0); BILIRUBIN,TOTAL 0.5 mg/dL (0.2-1.0)
[2020-03-02 21:22] LABS: APPEARANCE,URINE Clear (CLEAR); BILIRUBIN,URINE Negative (NEGATIVE); COLOR,URINE Yellow (YELLOW); GLUCOSE, URINE (UA) 500 mg/dL (NEGATIVE); KETONES,URINE Negative (NEGATIVE); LEUKOCYTE ESTERASE ,URINE Negative (NEGATIVE); NITRATE,URINE Negative (NEGATIVE); OCCULT BLOOD,URINE Negative (NEGATIVE); PROTEIN,URINE 300 mg/dL (NEGATIVE); UROBILINOGEN,URINE 0.2 mg/dL (0.2-1.0)
[2020-03-02 21:26] LABS: MAGNESIUM 1.6 mg/dL (1.80-2.40)
[2020-03-02 21:32] LABS: TOTAL PROTEIN, SERUM 6.2 g/dL (6.0-8.3)
[2020-03-02 21:37] LABS: BACTERIA,URINE None Seen /HPF (None Seen); RBC,URINE 0-1 /HPF (0-1); SQUAMOUS EPITHELIAL CELL,UR 0-2 /HPF (0-2); WBC,URINE 0-1 /HPF (0-1)
[2020-03-02] MEDS ORDERED: MAGNESIUM OXIDE 400 MG TABLET PO ONE (21:53)
[2020-03-02] MEDS ORDERED: MECLIZINE HCL 25 MG TABLET ONE (22:17)
== END 2020-03-03 01:28 | disposition home or self-care (01) ==
LOC: EDH 20:31
DX: E11.65 Type 2 diabetes mellitus with hyperglycemia (principal); H81.10 Benign paroxysmal vertigo, unspecified ear; R26.9 Unspecified abnormalities of gait and mobility; Z20.828 Contact with and (suspected) exposure to other viral communicable diseases; N18.9 Chronic kidney disease, unspecified; E11.22 Type 2 diabetes mellitus with diabetic chronic kidney disease; I12.9 Hypertensive chronic kidney disease with stage 1 through stage 4 chronic kidney disease, or unspecified chronic kidney disease; I10 Essential (primary) hypertension; Z72.0 Tobacco use
CPT/HCPCS: 36415 ×2; 70450; 71045; 80053; 81001; 82140; 82330; 82948 ×2; 83690; 83735; 83880; 85025; 87426; 93005; 99284; U0003

== ENCOUNTER → 2020-04-22 | Outpatient (CLI) | payer OTHER ==
[~2020-04-22] MED LIST changes: +AMLO-257 PO; -AMLO5TAB9 PO
[2020-04-22 12:40] LABS: BASOPHILS % (AUTO) 0.6 % (0.0-5.0); EOSINOPHILS % (AUTO) 2.5 % (0.0-8.0); HEMATOCRIT 32.6 % (42-54); LYMPHOCYTES % (AUTO) 14.9 % (21.0-51.0); MEAN CORPUSCULAR HEMOGLOBIN 29.4 pg (27.0-33.0); MEAN CORPUSCULAR HGB CONC 33.7 g/dL (32.0-36.0); MEAN CORPUSCULAR VOLUME 87.2 fL (79-99); MONOCYTES % (AUTO) 6.4 % (3.0-13.0); PLATELET COUNT (AUTO) 254 K/uL (130-400); RED BLOOD CELL COUNT(AUTO) 3.74 MIL/uL (4.50-6.20); RED CELL DISTRIBUTION WIDTH 14.3 % (11.0-15.5); WHITE BLOOD COUNT (AUTO) 14.5 K/uL (4.8-10.8)
[2020-04-22 13:00] LABS: CREATININE 4.7 mg/dL (0.5-1.5); POTASSIUM 4.9 mmol/L (3.5-5.1)
== END | disposition home or self-care (01) ==
LOC: LAB 11:08
PROVIDERS: ATTEND Urology
DX: N41.0 Acute prostatitis (principal)
CPT/HCPCS: 36415; 80048; 85025

== ENCOUNTER → 2020-07-22 | Outpatient (CLI) | payer OTHER | END | disposition home or self-care (01) | LOC: RAH 08:10 | PROVIDERS: ATTEND Internal Medicine Cardiovascular Disease | DX: R07.9 Chest pain, unspecified (principal) | CPT/HCPCS: 93306; 93356 ==

== ENCOUNTER 2020-07-25 01:59 | Observation (INO) | payer OTHER ==
[~2020-07-25] VITALS: Ht 175.3 cm; Wt 82.8 kg
[2020-07-25 02:34] LABS: BASOPHILS % (AUTO) 0.3 % (0.0-5.0); EOSINOPHILS % (AUTO) 1.8 % (0.0-8.0); HEMATOCRIT 30.3 % (42-54); LYMPHOCYTES % (AUTO) 11.6 % (21.0-51.0); MEAN CORPUSCULAR HEMOGLOBIN 29.8 pg (27.0-33.0); MEAN CORPUSCULAR VOLUME 87.6 fL (79-99); MONOCYTES % (AUTO) 5.5 % (3.0-13.0); NEUTROPHILS % (AUTO) 80.2 % (40.0-77.0); PLATELET COUNT (AUTO) 315 K/uL (130-400); RED BLOOD CELL COUNT(AUTO) 3.46 MIL/uL (4.50-6.20); RED CELL DISTRIBUTION WIDTH 13.4 % (11.0-15.5); WHITE BLOOD COUNT (AUTO) 17.1 K/uL (4.8-10.8)
[2020-07-25 02:41] LABS: CREATININE 5.8 mg/dL (0.5-1.5); POTASSIUM 4.3 mmol/L (3.5-5.1)
[2020-07-25 02:45] LABS: ALBUMIN 3.6 g/dL (3.5-5.0); BILIRUBIN,TOTAL 0.2 mg/dL (0.2-1.0); INR 1.02 (0.85-1.15); PROTHROMBIN TIME 10.9 SEC (9.6-11.6); TOTAL PROTEIN, SERUM 7.5 g/dL (6.0-8.3)
[2020-07-25 02:46] LABS: PARTIAL THROMBOPLASTIN TIME 30.2 SEC (26.3-35.5)
[2020-07-25 02:53] LABS: B-TYPE NATRIURETIC PEPTIDE 106 pg/mL (0-100)
[2020-07-25] MEDS ORDERED: ORPHENADRINE CITRATE 30 MG/ML ML ONE (03:43)
[2020-07-25 05:25] LABS: APPEARANCE,URINE Clear (CLEAR); BILIRUBIN,URINE Negative (NEGATIVE); COLOR,URINE Yellow (YELLOW); GLUCOSE, URINE (UA) Negative (NEGATIVE); KETONES,URINE Negative (NEGATIVE); LEUKOCYTE ESTERASE ,URINE Negative (NEGATIVE); NITRATE,URINE Negative (NEGATIVE); OCCULT BLOOD,URINE Negative (NEGATIVE); PH,URINE 6.5 (5.0-8.0); PROTEIN,URINE 300 mg/dL (NEGATIVE); UROBILINOGEN,URINE 0.2 mg/dL (0.2-1.0)
[2020-07-25 05:34] LABS: BACTERIA,URINE None Seen /HPF (None Seen); RBC,URINE 0-1 /HPF (0-1); WBC,URINE 0-1 /HPF (0-1)
[2020-07-25] MEDS ORDERED: ACETAMINOPHEN EXTRA STRENGTH 500 MG TABLET ONE (05:44)
[2020-07-25] MEDS ORDERED: ASPIRIN 325 MG TABLET ONE (05:44)
[2020-07-25] MEDS ORDERED: NITROGLYCERIN 1GM/1 INCH PACKET TD ONE (05:44)
[2020-07-25] MEDS: ENOXAPARIN SODIUM 30 MG/0.3 ML SQ SCH (09:00)
[2020-07-25 09:28] LABS: AMYLASE 37 U/L (25-115); CREATINE KINASE, TOTAL 81 U/L (21-232); LIPASE 73 U/L (114-286); MYOGLOBIN 159 ng/mL (10-92); TROPONIN I < 0.04 ng/mL (0.00-0.06)
[2020-07-25] MEDS ORDERED: ENOXAPARIN SODIUM 30 MG/0.3 ML SQ ONE (09:56)
[2020-07-25 14:22] LABS: CREATINE KINASE, TOTAL 74 U/L (21-232); MYOGLOBIN 159 ng/mL (10-92); TROPONIN I < 0.04 ng/mL (0.00-0.06)
[2020-07-25 16:00] VITALS: BP 155/66
[2020-07-25 19:00] VITALS: BP 117/78
[2020-07-26] VITALS (7 sets, daily range): BP systolic 138–185; BP diastolic 56–88
[2020-07-26] MEDS ORDERED: INSULIN HUMULIN R 100 UNIT/ML 3ML SQ SCH (07:30)
[2020-07-26] MEDS ORDERED: PHARMACY COMMUNICATION MISC SCH (08:15)
[2020-07-26] MEDS: ASPIRIN 325MG EC TAB 325 MG TABLET.DR PO SCH (09:00)
[2020-07-26] MEDS: ENOXAPARIN SODIUM 30 MG/0.3 ML SQ SCH (09:01)
[2020-07-26] MEDS ORDERED: GLUCAGON 1MG KIT 1 MG ML IM PRN (09:30)
[2020-07-26] MEDS ORDERED: DEXTROSE 50%-WATER 50 ML DISP.SYRIN IV PRN (09:30)
[2020-07-26] MEDS ORDERED: AMLODIPINE BESYLATE 5 MG TAB ONE (10:57)
[2020-07-26] MEDS ORDERED: HYDROCHLOROTHIAZIDE 25 MG TABLET ONE (10:58)
[2020-07-26] MEDS ORDERED: CLONIDINE HCL 0.2 MG TABLET PO PRN (11:00)
[2020-07-26] MEDS ORDERED: HYDRALAZINE HCL 25 MG TABLET PO SCH (12:08)
[2020-07-26] MEDS ORDERED: AMLODIPINE BESYLATE 5 MG TAB PO SCH (12:08)
[2020-07-26] MEDS ORDERED: REGADENOSON 0.4 MG/5 ML PF SYG IVP SCH (12:30)
[2020-07-26] MEDS ORDERED: HUMALOG PO SS1 SQ SCH (16:30)
[2020-07-26] MEDS ORDERED: ACETAMINOPHEN 325 MG TAB PO PRN (18:00)
[2020-07-26] MEDS: HYDRALAZINE HCL 25 MG TABLET PO SCH (20:33)
[2020-07-26] MEDS: AMLODIPINE BESYLATE 5 MG TAB PO SCH (20:33)
[2020-07-26] MEDS: INSULIN LISPRO 100 UNIT/ML 3ML SQ SCH (21:38)
[2020-07-27 04:29] VITALS: BP 154/68
[2020-07-27] MEDS ORDERED: ACETAMINOPHEN-CODEINE 300/30MG TAB PO PRN (07:30)
[2020-07-27 08:00] VITALS: BP 188/64
[2020-07-27] MEDS: HYDRALAZINE HCL 25 MG TABLET PO SCH (08:49)
[2020-07-27] MEDS: AMLODIPINE BESYLATE 5 MG TAB PO SCH (08:49)
[2020-07-27] MEDS: ENOXAPARIN SODIUM 30 MG/0.3 ML SQ SCH (08:52)
[2020-07-27] MEDS: ASPIRIN 325MG EC TAB 325 MG TABLET.DR PO SCH (08:52)
[2020-07-27] MEDS: INSULIN LISPRO 100 UNIT/ML 3ML SQ SCH (08:56)
[2020-07-27 12:00] VITALS: BP 187/74
== END 2020-07-27 13:00 | disposition home or self-care (01) ==
LOC: EDH 01:59 → EDHIP 06:55 → INTOOBSV 06:55 → 4DH 15:08
PROVIDERS: ADMIT Family Medicine; ATTEND Family Medicine
DX: R07.89 Other chest pain (principal); Z20.828 Contact with and (suspected) exposure to other viral communicable diseases; R06.02 Shortness of breath; I12.0 Hypertensive chronic kidney disease with stage 5 chronic kidney disease or end stage renal disease; E11.22 Type 2 diabetes mellitus with diabetic chronic kidney disease; E11.21 Type 2 diabetes mellitus with diabetic nephropathy; N18.6 End stage renal disease; E78.5 Hyperlipidemia, unspecified; R01.1 Cardiac murmur, unspecified; M62.830 Muscle spasm of back; F17.200 Nicotine dependence, unspecified, uncomplicated; Z99.2 Dependence on renal dialysis; Z90.49 Acquired absence of other specified parts of digestive tract; Z96.651 Presence of right artificial knee joint; Z79.4 Long term (current) use of insulin; Z79.899 Other long term (current) drug therapy
CPT/HCPCS: 36415; 70450; 71045; 72125; 78452; 80053; 81001; 82150; 82550 ×3; 82948 ×8; 83605; 83690; 83874 ×2; 83880; 84484 ×3; 85025; 85610; 85730; 87040 ×2; 87426; 93005 ×2; 93017; 96372 ×2; 99291; A9500 ×2; G0378 ×51; J1650 ×3; J2360; J2785; U0003; 96374

== ENCOUNTER 2021-07-20 11:02 | Emergency (ER) | payer OTHER ==
[~2021-07-20] VITALS: Ht 175.3 cm; Wt 86.2 kg
[~2021-07-20 11:02] MED LIST changes: -LISI40TA4 PO; +LISI40TA9 PO
[2021-07-20 11:38] LABS: BASOPHILS % (AUTO) 0.3 % (0.0-5.0); EOSINOPHILS % (AUTO) 1.9 % (0.0-8.0); HEMATOCRIT 30.4 % (42-54); LYMPHOCYTES % (AUTO) 11.4 % (21.0-51.0); MEAN CORPUSCULAR HEMOGLOBIN 28.4 pg (27.0-33.0); MEAN CORPUSCULAR HGB CONC 32.6 g/dL (32.0-36.0); MEAN CORPUSCULAR VOLUME 87.4 fL (79-99); MONOCYTES % (AUTO) 5.6 % (3.0-13.0); NEUTROPHILS % (AUTO) 80.3 % (40.0-77.0); PLATELET COUNT (AUTO) 199 K/uL (130-400); RED BLOOD CELL COUNT(AUTO) 3.48 MIL/uL (4.50-6.20); RED CELL DISTRIBUTION WIDTH 14.4 % (11.0-15.5); WHITE BLOOD COUNT (AUTO) 9.8 K/uL (4.8-10.8)
[2021-07-20 11:52] LABS: ALBUMIN 3.5 g/dL (3.5-5.0); BILIRUBIN,TOTAL 0.4 mg/dL (0.2-1.0); TOTAL PROTEIN, SERUM 6.7 g/dL (6.0-8.3)
[2021-07-20 11:53] LABS: CREATININE 7.9 mg/dL (0.5-1.5)
[2021-07-20 13:20] VITALS: BP 143/55
[2021-07-20] MEDS ORDERED: OSELTAMIVIR PHOSPHATE 75 MG CAP PO SCH (13:30)
[2021-07-20] MEDS ORDERED: D-ME118S47 PO (13:35)
[2021-07-20] MEDS ORDERED: OSEL75 PO (13:35)
== END 2021-07-20 13:53 | disposition home or self-care (01) ==
LOC: EDH 11:02
DX: J10.1 Influenza due to other identified influenza virus with other respiratory manifestations (principal); Z20.822 Contact with and (suspected) exposure to COVID-19; I12.0 Hypertensive chronic kidney disease with stage 5 chronic kidney disease or end stage renal disease; E11.22 Type 2 diabetes mellitus with diabetic chronic kidney disease; N18.6 End stage renal disease; Z79.4 Long term (current) use of insulin; Z79.899 Other long term (current) drug therapy; Z90.49 Acquired absence of other specified parts of digestive tract
CPT/HCPCS: 36415; 71045; 80053; 83880; 84484; 85025; 85378; 87635; 87804 ×2; 93005; 99283; C9803

== ENCOUNTER 2021-10-14 05:30 | Day surgery (SDC) | payer OTHER ==
[2021-10-08 16:20] LABS: APPEARANCE,URINE Clear (CLEAR); BILIRUBIN,URINE Negative (NEGATIVE); COLOR,URINE Yellow (YELLOW); GLUCOSE, URINE (UA) 250 mg/dL (NEGATIVE); KETONES,URINE Negative (NEGATIVE); LEUKOCYTE ESTERASE ,URINE Trace (NEGATIVE); NITRATE,URINE Negative (NEGATIVE); OCCULT BLOOD,URINE Negative (NEGATIVE); PROTEIN,URINE 300 mg/dL (NEGATIVE)
[2021-10-08 16:20] LABS: BASOPHILS % (AUTO) 0.5 % (0.0-5.0); EOSINOPHILS % (AUTO) 3.3 % (0.0-8.0); HEMATOCRIT 33.6 % (42-54); LYMPHOCYTES % (AUTO) 20.7 % (21.0-51.0); MEAN CORPUSCULAR HEMOGLOBIN 29.3 pg (27.0-33.0); MEAN CORPUSCULAR HGB CONC 32.7 g/dL (32.0-36.0); MEAN CORPUSCULAR VOLUME 89.6 fL (79-99); MONOCYTES % (AUTO) 7.3 % (3.0-13.0); NEUTROPHILS % (AUTO) 67.4 % (40.0-77.0); PLATELET COUNT (AUTO) 200 K/uL (130-400); RED BLOOD CELL COUNT(AUTO) 3.75 MIL/uL (4.50-6.20); RED CELL DISTRIBUTION WIDTH 14.3 % (11.0-15.5); WHITE BLOOD COUNT (AUTO) 6.4 K/uL (4.8-10.8)
[2021-10-08 16:29] LABS: CREATININE 3.6 mg/dL (0.5-1.5); POTASSIUM 3.7 mmol/L (3.5-5.1)
[2021-10-08 16:30] LABS: BACTERIA,URINE Few /HPF (None Seen); RBC,URINE 0-1 /HPF (0-1)
[2021-10-08 16:31] LABS: SQUAMOUS EPITHELIAL CELL,UR Rare /HPF (0-2)
[2021-10-08 16:32] LABS: INR 1.02 (0.85-1.15); PROTHROMBIN TIME 11.1 SEC (9.6-11.6)
[2021-10-08 16:33] LABS: PARTIAL THROMBOPLASTIN TIME 29.6 SEC (26.3-35.5)
[2021-10-08 16:43] LABS: B-TYPE NATRIURETIC PEPTIDE 80 pg/mL (0-100)
[2021-10-13 10:38] VITALS: BP 142/58
[2021-10-14] VITALS (8 sets, daily range): BP systolic 111–152; BP diastolic 49–61
[~2021-10-14] VITALS: Ht 175.3 cm; Wt 91.7 kg
[~2021-10-14 05:30] MED LIST changes: +CALC667T6 PO; +DOXA2TAB2 PO; +FENO134C21 PO; +FOLI0.8T22 PO; +FURO40TA5 PO; -GABA-531 PO; +ISOS30TA92 PO; +MONT-39 PO; +PANT40TA54 PO; +PREG100C55 PO; +chantix PO
[2021-10-14] MEDS ORDERED: 0.9% NACL 500ML IV.SOLN 500 ML IV SCH (06:00)
[2021-10-14] MEDS ORDERED: LIDOCAINE HCL 1% 20 ML VIAL ONE (07:09)
[2021-10-14] MEDS ORDERED: NITROGLYCERIN 50MG VIAL ONE (07:09)
[2021-10-14] MEDS ORDERED: IOHEXOL-350 50ML VIAL IV ONE (07:10)
[2021-10-14] MEDS ORDERED: MIDAZOLAM HCL 1 MG/ML 2ML VIAL ONE (07:11)
[2021-10-14] MEDS ORDERED: IOHEXOL 350 MG/ML 100ML INFUS..BTL IV ONE (07:11)
[2021-10-14] MEDS ORDERED: FENTANYL CITRATE PF 50 MCG/1 ML 2ML VIAL ONE (07:11)
[2021-10-14] MEDS ORDERED: LIDOCAINE HCL 1% MDV 50ML VIAL ONE (07:12)
[2021-10-14] MEDS ORDERED: 0.9%NACL 1000ML 1,000 ML IV ONE (07:14)
== END 2021-10-14 10:40 | disposition home or self-care (01) ==
LOC: DAH 05:30
PROVIDERS: ATTEND Internal Medicine Cardiovascular Disease
DX: I25.10 Atherosclerotic heart disease of native coronary artery without angina pectoris (principal); E11.22 Type 2 diabetes mellitus with diabetic chronic kidney disease; I12.0 Hypertensive chronic kidney disease with stage 5 chronic kidney disease or end stage renal disease; N18.6 End stage renal disease; E78.5 Hyperlipidemia, unspecified; E11.21 Type 2 diabetes mellitus with diabetic nephropathy; Z87.891 Personal history of nicotine dependence; Z86.73 Personal history of transient ischemic attack (TIA), and cerebral infarction without residual deficits; Z99.2 Dependence on renal dialysis; Z79.4 Long term (current) use of insulin; Z79.01 Long term (current) use of anticoagulants; Z79.899 Other long term (current) drug therapy
CPT/HCPCS: 36415; 71045; 80048; 81001; 82948; 83880; 85025; 85610; 85730; 93005; 93458; A4215; A4216; A4221; A4222; A4223 ×3; A4606; A4663; C1760; C1894; J1644; J2250; J3490 ×2; J7030; Q9965; Q9967 ×2; 99156; 99157; J3010

== ENCOUNTER → 2022-08-26 | Outpatient (CLI) | payer OTHER | END | disposition home or self-care (01) | LOC: RAH 06:53 | PROVIDERS: ATTEND Internal Medicine Gastroenterology | DX: R10.13 Epigastric pain (principal); R14.0 Abdominal distension (gaseous) | CPT/HCPCS: 78264; A9541 ==

== ENCOUNTER 2023-06-17 16:06 | Emergency (ER) | payer OTHER ==
[~2023-06-17] VITALS: Ht 167.6 cm; Wt 122.5 kg
[~2023-06-17 16:06] MED LIST changes: -PREG100C55 PO; +PREG100C56 PO
[2023-06-17] MEDS ORDERED: 0.9% NACL 500ML IV.SOLN 500 ML IV ONE (18:00)
[2023-06-17] MEDS ORDERED: MORPHINE 4 MG SYG IVP ONE (18:00)
[2023-06-17] MEDS ORDERED: ONDANSETRON 4MG INJ IVP ONE (18:00)
[2023-06-17 18:05] LABS: BASOPHILS # (AUTO) 0.04 K/uL (0.00-0.20); BASOPHILS % (AUTO) 0.4 % (0.0-5.0); EOSINOPHILS # (AUTO) 0.23 K/uL (0.00-0.70); EOSINOPHILS % (AUTO) 2.4 % (0.0-8.0); IMMATURE GRANULOCYTE ABSOLUTE 0.09 K/uL (0-1); LYMPHOCYTES # (AUTO) 1.3 K/uL (1.0-4.8); LYMPHOCYTES % (AUTO) 13.9 % (21.0-51.0); MEAN CORPUSCULAR HEMOGLOBIN 32.1 pg (27.0-33.0); MEAN CORPUSCULAR HGB CONC 34.8 g/dL (32.0-36.0); MEAN CORPUSCULAR VOLUME 92.3 fL (79-99); MONOCYTES # (AUTO) 0.7 K/uL (0.1-1.0); MONOCYTES % (AUTO) 7.4 % (3.0-13.0); NEUTROPHILS # (AUTO) 7.1 K/uL (1.8-7.7); PLATELET COUNT (AUTO) 163 K/uL (130-400); RED BLOOD CELL COUNT(AUTO) 3.36 MIL/uL (4.50-6.20); RED CELL DISTRIBUTION WIDTH 14.4 % (11.0-15.5); WHITE BLOOD COUNT (AUTO) 9.5 K/uL (4.8-10.8)
[2023-06-17 18:15] LABS: CREATININE 5.8 mg/dL (0.5-1.5); POTASSIUM 4.3 mmol/L (3.5-5.1)
[2023-06-17 18:19] LABS: ALBUMIN 3.1 g/dL (3.5-5.0); BILIRUBIN,TOTAL 0.4 mg/dL (0.2-1.0); TOTAL PROTEIN, SERUM 6.6 g/dL (6.0-8.3)
[2023-06-17 20:33] LABS: APPEARANCE,URINE CLOUDY (CLEAR); BILIRUBIN,URINE NEGATIVE (NEGATIVE); COLOR,URINE YELLOW (YELLOW); GLUCOSE, URINE (UA) 200 mg/dL (NEGATIVE); KETONES,URINE NEGATIVE (NEGATIVE); LEUKOCYTE ESTERASE ,URINE NEGATIVE Leu/uL (NEGATIVE); NITRATE,URINE NEGATIVE (NEGATIVE); PROTEIN,URINE 600 mg/dL (NEGATIVE); UROBILINOGEN,URINE 0.2 mg/dL (0.2-1.0)
[2023-06-17 20:34] LABS: ADD UA MICROSCOPIC YES
[2023-06-17 20:36] LABS: BACTERIA,URINE RARE /HPF (None Seen); RBC,URINE 0-1 /HPF (0-1); SQUAMOUS EPITHELIAL CELL,UR RARE /HPF (0-2); UNCLASSIFIED CRYSTAL 1 /HPF (None Seen); YEAST,URINE BUDDING FEW /HPF (None Seen)
[2023-06-17 21:39] VITALS: BP 150/64; PULSE 70; RESP 16; O2SAT 97
== END 2023-06-17 21:41 | disposition home or self-care (01) ==
LOC: EDH 16:06
DX: K57.90 Diverticulosis of intestine, part unspecified, without perforation or abscess without bleeding (principal); K59.00 Constipation, unspecified; I12.9 Hypertensive chronic kidney disease with stage 1 through stage 4 chronic kidney disease, or unspecified chronic kidney disease; E11.22 Type 2 diabetes mellitus with diabetic chronic kidney disease; N18.9 Chronic kidney disease, unspecified; Z90.49 Acquired absence of other specified parts of digestive tract; Z79.899 Other long term (current) drug therapy; Z98.890 Other specified postprocedural states
CPT/HCPCS: 99284; 74176; 96374; 96361; 96375; 80053; 83690; 85025; 87088; 81001; 36415; J7040; J2405; J2270

== ENCOUNTER 2023-11-17 13:43 | Emergency (ER) | payer OTHER ==
[~2023-11-17] VITALS: Ht 170.2 cm; Wt 79.4 kg
[2023-11-17 15:37] LABS: POTASSIUM 4.8 mmol/L (3.5-5.1)
[2023-11-17 15:41] LABS: ALBUMIN 3.6 g/dL (3.5-5.0); BILIRUBIN,TOTAL 0.3 mg/dL (0.2-1.0); TOTAL PROTEIN, SERUM 6.3 g/dL (6.0-8.3)
[2023-11-17 15:56] LABS: BASOPHILS # (AUTO) 0.03 K/uL (0.00-0.20); BASOPHILS % (AUTO) 0.3 % (0.0-5.0); EOSINOPHILS # (AUTO) 0.02 K/uL (0.00-0.70); EOSINOPHILS % (AUTO) 0.2 % (0.0-8.0); HEMATOCRIT 33.2 % (42-54); IMMATURE GRANULOCYTE ABSOLUTE 0.64 K/uL (0-1); LYMPHOCYTES # (AUTO) 0.9 K/uL (1.0-4.8); LYMPHOCYTES % (AUTO) 10.3 % (21.0-51.0); MEAN CORPUSCULAR HEMOGLOBIN 31.7 pg (27.0-33.0); MEAN CORPUSCULAR HGB CONC 34.3 g/dL (32.0-36.0); MEAN CORPUSCULAR VOLUME 92.2 fL (79-99); MONOCYTES # (AUTO) 0.3 K/uL (0.1-1.0); MONOCYTES % (AUTO) 3.2 % (3.0-13.0); NEUTROPHILS # (AUTO) 7.1 K/uL (1.8-7.7); NEUTROPHILS % (AUTO) 78.9 % (40.0-77.0); PLATELET COUNT (AUTO) 143 K/uL (130-400); RED CELL DISTRIBUTION WIDTH 14.2 % (11.0-15.5)
[2023-11-17] MEDS: 0.9%NACL 1000ML 1,000 ML IV ONE (17:50)
[2023-11-17] MEDS: MORPHINE 5 MG/ML VIAL (5MG OR GREATER DOSE) IV ONE (17:50)
[2023-11-17] MEDS ORDERED: HYDR-4064 PO (17:54)
[2023-11-17 18:21] VITALS: BP 165/65; PULSE 57; RESP 18; O2SAT 98
== END 2023-11-17 18:45 | disposition home or self-care (01) ==
LOC: EDH 13:43
DX: I12.9 Hypertensive chronic kidney disease with stage 1 through stage 4 chronic kidney disease, or unspecified chronic kidney disease (principal); E11.22 Type 2 diabetes mellitus with diabetic chronic kidney disease; N18.9 Chronic kidney disease, unspecified; K43.9 Ventral hernia without obstruction or gangrene; E78.00 Pure hypercholesterolemia, unspecified; Z79.899 Other long term (current) drug therapy; Z86.73 Personal history of transient ischemic attack (TIA), and cerebral infarction without residual deficits; Z90.49 Acquired absence of other specified parts of digestive tract; Z99.2 Dependence on renal dialysis
CPT/HCPCS: 99284; 74176; 96374; 96361; 82550; 84484; 80053; 83690; 85025; 36415; 93005; J2270; J7030

== ENCOUNTER 2024-07-14 12:43 | Emergency (ER) | payer OTHER ==
[~2024-07-14] VITALS: Ht 175.3 cm; Wt 81.6 kg
[~2024-07-14 12:43] MED LIST changes: +ASPI-1005 PO; -CALC667T6 PO; +CLON0.3T PO; -DIGO250T73 PO; -DOXA2TAB2 PO; -FENO134C21 PO; -FERS325 PO; -FURO40TA5 PO; +GABA-529 PO; -HYDR-3420 PO; -INSU100I24 SQ; +INSU200I SQ; +INSU300I3 SQ; -LISI40TA9 PO; +MELA3TAB41 PO; +METH-811 PO; +METO25TA6 PO; -MONT-39 PO; +MYCO360T PO; +PRED10TA3 PO; -PREG100C56 PO; +SENN-7 PO; +SITA25TA5 PO; +SULF1TAB41 PO; +TACR1CAP10 PO; +TAMS-1 PO; +VALG450T15 PO; -chantix PO
--- NOTE | 2024-07-14 13:08 | ERN ---
ED Note History of Present Illness Stated Complaint: CHEST PAINS, SOB Chief Complaint: Chest Pain Time Seen by MD: 15:35 Dictation: This is a case of 69-year-old male with a past medical history of diabetes mellitus type 2, hypertension, high cholesterol, end-stage renal disease [s/p kidney transplant last year], right-sided abdominal hernia who presented to the ER with the complaints of shortness of breath. He states that he has started experiencing difficulty in breathing and constant heaviness in chest since the past 2 days which increased in intensity today. He also admits to experiencing right-sided abdominal pain secondary to hernia for the past few months. He describes the pain as constant, moderate and tender on palpation. He denies fever, chills, headache, dizziness, nausea, vomiting, chest pain, palpitations, abdominal pain, burning sensation when urinating, constipation/diarrhea. Allergies: Coded Allergies: No Known Allergies (Verified Allergy, Unknown, 02/27/18) Home Meds Active Scripts Hydrocodone/Acetaminophen (Hydrocodon-Acetaminophen 5-325) 5 Mg-325 Mg Tablet, 1 TAB PO TIDP PRN for pain for 5 Days, #15 TAB 0 Refills Prov:ELIA SOL DO 07/14/24 Reported Medications Tacrolimus (Tacrolimus) 1 Mg Capsule, 1 MG PO HS, CAP 02/09/24 Tamsulosin HCl (Flomax) 0.4 Mg Cap.er.24h, 0.4 MG PO AM 02/09/24 Melatonin (Melatonin) 3 Mg Tablet, 15 MG PO HS, TAB 11/24/23 Sitagliptin Phosphate (Januvia) 25 Mg Tablet, 25 MG PO DAILYBKFST, TAB 11/24/23 Isosorbide Mononitrate (Isosorbide Mononitrate ER) 30 Mg Tab.er.24h, 30 MG PO DAILY, TAB 11/24/23 Insulin Lispro (Humalog Kwikpen) 200 Unit/Ml (3 Ml) Insuln.pen, 200 UNIT SQ AD, SYRINGE 11/24/23 Gabapentin (Gabapentin) 100 Mg Capsule, 100 MG PO TID, CAP 11/24/23 Clonidine HCl (Clonidine HCl) 0.3 Mg Tablet, 0.3 MG PO TID, TAB 11/24/23 Insulin Glargine,Hum.rec.anlog (Toujeo Max Solostar) 300 Unit/Ml (3 Ml) Insuln.pen, 30 UNIT SQ DAILYBKFST, SYRINGE 11/24/23 Tacrolimus (Tacrolimus) 1 Mg Capsule, 2 MG PO DAILY, CAP 11/24/23 Sulfamethoxazole/Trimethoprim (Bactrim 400-80 mg Tablet) 400 Mg-80 Mg Tablet, 1 TAB PO DAILY, TAB 11/24/23 Sennosides/Docusate Sodium (Senna-Docusate Sodium Tablet) 8.6 Mg-50 Mg Tablet, 1 EACH PO DAILY PRN for CONSTIPATION, TAB 11/24/23 Prednisone (Prednisone) 10 Mg Tablet, 5 MG PO DAILY, TAB 11/24/23 Mycophenolate Sodium (Myfortic) 360 Mg Drtab, 720 MG PO BID, TAB 11/24/23 Metoprolol Tartrate (Metoprolol Tartrate) 25 Mg Tablet, 12.5 MG PO BID, TAB 11/24/23 Methocarbamol (Methocarbamol) 500 Mg Tablet, 500 MG PO Q4HPRN PRN for PAIN LEVEL 1 TO 5, TAB 11/24/23 Aspirin (ASPIRIN 81MG CHEW TAB) 81 Mg Tab.chew, 81 MG PO DAILY, TAB.CHEW 11/24/23 Valganciclovir HCl (Valganciclovir HCl) 450 Mg Tablet, 450 MG PO DAILY, TAB 11/24/23 Pantoprazole Sodium (Pantoprazole Sodium) 40 Mg Tablet.dr, 40 MG PO DAILY, TAB 10/13/21 Folic Acid/Vitamin B Comp W-C (Zenia-Devante Tablet) 0.8 Mg Tablet, 0.8 MG PO DAILY, TAB 10/13/21 Atorvastatin Calcium (Atorvastatin Calcium) 20 Mg Tablet, 40 MG PO HS, TAB 06/09/19 Amlodipine Besylate (Amlodipine Besylate) 5 Mg Tablet, 10 MG PO DAILY, TAB 02/28/18 Past Medical History Past Medical History: Diabetes-Type II, High Cholesterol, Hypertension, Renal Disese Additional Past Medical Hx: ABDOMINAL HERNIA Surgical History: Appendectomy, Other Surgical History Other: KIDNEY TRANSPLANT Social History: Negative, Lives with family Review of System Dictation ROS Constitutional: No appetite loss, No fevers, chills , No night sweats, No weakness, fatigue Eye: No vision change, No redness, pain or discharge ENT: No hearing loss, ear pain or discharge, No nose bleeds, No sore throat, Neck: No swelling. pain or stiffness Respiratory: No cough, shortness of breath, wheezing Cardiovascular: No chest pain,, palpitations, dyspnea, No edema Gastrointestinal: Right-sided abdominal pain and tenderness secondary to hernia, No nausea, vomiting, No diarrhea, constipation Genitourinary: No painful urination, No blood in urine, No urinary incontinence, No frequency or urgency Musculoskeletal: No joint pain, muscle pain, swelling or stiffness Neurological: No numbness, tingling, No weakness, tremors or seizures Psychiatric: : No depression, No anxiety, No sleep disturbance, No Memory changes A 13-point Review of Systems was assessed, all of which are negative except for HPI or as indicated above. Initial Vital Sign VS Vital Signs Date Time Temp Pulse Resp B/P (MAP) Pulse Ox O2 Delivery O2 Flow Rate FiO2 07/14/24 12:59 98.4 72 16 128/63 99 Room Air 0 07/14/24 14:07 21 Physical Exam Dictation General: Alert & Oriented, No acute distress. EENT: No conjunctival redness or discharge noted Tympanic membranes are clear, Normal hearing, Oral mucosa is moist, No pharyngeal erythema, No nasal discharge, No oral lesions. Neck: Non-tender, No jugular vein distention, No lymphadenopathy, No thyromegaly, Supple. Respiratory: Mild Crackles heard on the left side Lungs are clear to auscultation, Respirations are non-labored, Breath sounds are equal, No chest wall tenderness Cardiovascular: Normal rate, Normal rhythm, No murmur, Good pulses equal in all extremities, Normal peripheral perfusion, No edema. Gastrointestinal: Soft, right-sided abdominal hernia, no erythema, warmth noted Non-tender, Non-distended, Normal bowel sounds, No organomegaly Musculoskeletal: Normal range of motion, Normal strength, No tenderness, No swelling, No deformity, Normal gait. Integumentary: Warm, Dry, Hyder, Intact, No pallor, No rash. Neurologic: Alert, Oriented x4, Normal sensory, No focal defects Psychiatric: Cooperative, Appropriate mood & affect, Normal judgement, Non-suicidal. Results (Laboratory/Radiology) Laboratory/Radiology Laboratory Tests Test 07/14/24 13:56 07/14/24 14:10 07/14/24 14:16 07/14/24 15:15 White Blood Count 12.9 K/uL (4.8-10.8) H Red Blood Count 4.28 MIL/uL (4.50-6.20) L Hemoglobin 12.7 g/dL (14.0-18.0) L Hematocrit 39.5 % (42-54) L Mean Corpuscular Volume 92.3 fL (79-99) Mean Corpuscular Hemoglobin 29.7 pg (27.0-33.0) Mean Corpuscular Hemoglobin Concent 32.2 g/dL (32.0-36.0) Red Cell Distribution Width 14.2 % (11.0-15.5) Platelet Count 186 K/uL (130-400) Mean Platelet Volume 11.0 fL (7.5-10.5) H Immature Granulocyte % (Auto) 2.2 % (0-1) H Neutrophils (%) (Auto) 83.6 % (40.0-77.0) H Lymphocytes (%) (Auto) 7.6 % (21.0-51.0) L Monocytes (%) (Auto) 6.0 % (3.0-13.0) Eosinophils (%) (Auto) 0.3 % (0.0-8.0) Basophils (%) (Auto) 0.3 % (0.0-5.0) Neutrophils # (Auto) 10.8 K/uL (1.8-7.7) H Lymphocytes # (Auto) 1.0 K/uL (1.0-4.8) Monocytes # (Auto) 0.8 K/uL (0.1-1.0) Eosinophils # (Auto) 0.04 K/uL (0.00-0.70) Basophils # (Auto) 0.04 K/uL (0.00-0.20) Absolute Immature Granulocyte (auto 0.28 K/uL (0-1) Nucleated Red Blood Cells 0.0 % (0.0-0.19) White Cell Morphology Comment See comments Sodium Level 143 mmol/L (136-145) Potassium Level 4.8 mmol/L (3.5-5.1) Chloride Level 106 mmol/L (101-111) Carbon Dioxide Level 31 mmol/L (21-32) Blood Urea Nitrogen 22 mg/dL (7-18) H Creatinine 1.5 mg/dL (0.5-1.3) H Glomerular Filtration Rate Calc 50 mL/min (>90) Random Glucose 138 mg/dL (70-105) H Lactic Acid Level 2.1 mmol/L (0.8-2.5) Total Calcium 9.6 mg/dL (8.5-10.1) Total Creatine Kinase 52 U/L (21-232) B-Type Natriuretic Peptide 116 pg/mL (0-100) H Procalcitonin < 0.05 ng/mL (0.05-0.5) L Influenza Type A Antigen Negative For Type A Influenza Type B Antigen Negative For Type B SARS-CoV-2 Antigen (Rapid) PRESUMPTIVE NEGATIVE Troponin I < 0.05 ng/mL (0.00-0.05) Urine Color YELLOW (YELLOW) Urine Appearance CLEAR (CLEAR) Urine pH 5.0 (5.0-8.0) Urine Specific [place] 1.020 (1.001-1.031) Urine Protein 10 mg/dL (NEGATIVE) H Urine Glucose (UA) NEGATIVE mg/dL (NEGATIVE) Urine Ketones 5 mg/dL (NEGATIVE) H Urine Occult Blood NEGATIVE (NEGATIVE) Urine Nitrate NEGATIVE (NEGATIVE) Urine Bilirubin NEGATIVE mg/dL (NEGATIVE) Urine Urobilinogen 2.0 mg/dL (0.2-1.0) H Urine Leukocyte Esterase NEGATIVE Sha/uL Urine RBC 0-1 /HPF (0-1) Urine WBC 0-1 /HPF (0-1) Urine Bacteria None /HPF (None Seen) Test 07/14/24 17:25 Troponin I < 0.05 ng/mL (0.00-0.05) EKG Comment: PROCEDURE: EKG - 12 LEAD EKG TRACING- TECHNICAL [facility] Test Date: 2024-07-14 Test Time: 12:52:46 Pat Name: JOSE CARLOS GONZALES Department: [facility] Room: Gender: M 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 Lungs are clear. Heart size is normal. There is no pulmonary vascular congestion. Mediastinum and bony thorax appear unremarkable. IMPRESSION: 1. Normal single view chest x-ray. CT Scan Comment: PROCEDURE: ABD PEL WO - CT ABDOMEN/PELVIS W/O CONTRAST CT ABDOMEN/PELVIS W/O CONTRAST REASON: pain, rt sided abdominal hernia COMPARISON: None. FINDINGS: Lung bases are clear. There are no focal liver lesions. [place] kidneys are markedly atrophic. There is a normal-appearing transplant kidney in the right lower quadrant.. Spleen and pancreas appear unremarkable. There has been a previous cholecystectomy. There is moderate sigmoid diverticulosis without evidence of diverticulitis. Bowel loops appear otherwise unremarkable. This includes normal appearance of the appendix There is no evidence of free fluid or intraperitoneal air. There are no focal fluid collections. There is calcification of the aorta without evidence of aneurysm or stenosis. Aorta and retroperitoneum appear otherwise normal as do pelvic soft tissue structures. The anterior abdominal wall is intact. Osseous structures appear unremarkable. There is a femoral to femoral artery graft visible in the lower pelvic subcutaneous soft tissues. IMPRESSION: 1. Atrophic [place] kidneys, there is a normal-appearing transplant kidney in right lower quadrant. 2. Moderate sigmoid diverticulosis without evidence of diverticulitis. 3. No acute finding in the abdomen or pelvis. CT was performed with one or more following dose reduction techniques: automated exposure control, adjustment of the mA and kv according to patient's size, or use of a iterative reconstruction technique. ED Course ED Course Orders Procedure Category Date Status Time Vital Signs Per CPOE 07/14/24 Transmitted Routine 13:04 B-Type Natriuretic LAB 07/14/24 Complete Peptide 13:04 Chest 1vw RAD 07/14/24 Resulted 13:04 12 Lead Ekg Tracing- EKG 07/14/24 Resulted Technical 13:04 Oxygen By Nc/Pulse Ox CPOE 07/14/24 Transmitted 13:04 Maintain Iv CPOE 07/14/24 Transmitted 13:04 Iv Insertion CPOE 07/14/24 Transmitted 13:04 Cardiac Monitoring CPOE 07/14/24 Transmitted 13:04 Pulse Oximetry With CPOE 07/14/24 Transmitted Vs And Prn 13:04 Cbc With Differential LAB 07/14/24 Complete 13:04 Activity: Br W/Brp CPOE 07/14/24 Transmitted With Assist 13:04 Creatine Kinase, Total LAB 07/14/24 Complete 13:04 Troponin Poc Order LAB 07/14/24 Complete Only 13:04 Bedside Troponin-I LAB.ER 07/14/24 Complete (Poc) 13:04 Basic Metabolic Panel LAB 07/14/24 Complete 13:04 Influenza Type A & B, LAB 07/14/24 Complete Rapid 13:09 Covid19 (Sars Antigen LAB 07/14/24 Complete Rapid) 13:09 Urinalysis Profile LAB 07/14/24 Complete 13:20 Lactic Acid LAB 07/14/24 Complete 13:20 Procalcitonin LAB 07/14/24 Complete 13:20 Ct Abdomen/Pelvis W/O CT 07/14/24 Resulted Contrast 15:22 Morphine 2mg Syg PHA 07/14/24 Complete (Morphine 2mg Syg) 15:30 Morphine 2mg Syg PHA 07/14/24 Complete (Morphine 2mg Syg) 16:00 *Nursing CPOE 07/14/24 Transmitted Communication: 16:09 Troponin Poc Order LAB 07/14/24 Complete Only 17:03 Current Medications Medications (Trade) Dose Ordered Sig/Kyler Route PRN Reason Start Time Stop Time Status Last Admin Dose Admin Morphine Sulfate (morPHINE 2MG SYG) 1 mg ONCE ONCE IM 07/14/24 16:00 07/14/24 16:01 DC 07/14/24 15:58 Morphine Sulfate (morPHINE 2MG SYG) 1 mg ONCE ONCE IVP 07/14/24 15:30 07/14/24 15:54 DC Vital Signs Date Time Temp Pulse Resp B/P (MAP) Pulse Ox O2 Delivery O2 Flow Rate FiO2 07/14/24 17:38 98.4 75 16 134/65 99 Room Air* 0 07/14/24 15:18 98.4 70 16 129/57 99 Room Air* 0 07/14/24 14:07 98.4 72 16 128/63 99 Room Air* 0 07/14/24 12:59 98.4 72 16 128/63 99 Room Air 0 Medical Decision Making MDM MDM Potential differential diagnoses include: Pneumonia Influenza COVID Assessment: I will order a CBC and CMP and administer medications according to the patient's complaint. We will order 1 mg morphine IV for pain I will re-evaluate the patient after treatment and diagnostic exams have returned to determine whether they require further testing, can be safely discharged home, or need admission for further treatment and evaluation. Given the social determinants of health affecting care, including literacy, access to medical care, prescription drug management, and xqfh-cuq-ohdmgen drugs, I will ensure that treatment plans are tailored accordingly. Revaluation : Patient is alert and oriented. Labs WBC 12.9, BNP 116. Troponin, CCK and procalcitonin levels are normal. EKG resulted in sinus rhythm. Chest x- ray showed clear lungs and no pulmonary vascular congestion. The patient was advised to get admitted to the hospital for comprehensive cardiac workup. However the patient declined admission after being informed of the potential risks and benefits. The patient was counseled on the importance of timely evaluation and follow up, and alternative outpatient management plans were discussed Disposition: Patient is being discharged home with pain medications Tylenol 3 p.r.n. for 5 days Advised to Follow up with PCP within 2-3 days Monitor for worsening of symptoms like shortness of breath, chest pain, palpitations or swelling in the legs, chest pain or pressure, persistent coughing a new fever and seek immediate medical attention in such scenario. Advised to undergo further cardiac workup like 2D echo, stress test outpatient within 1 week to rule out cardiac causes for dyspnea Keep a track of oxygen saturation levels and notify your doctor if levels drop below 92% consistently Maintain a low-sodium diet Stay hydrated Avoid coph-mxb-jqowrju medications like ibuprofen and naproxen Avoid heavy lifting straining or vigorous activities that increase intra- abdominal pressure Continue using abdominal binder p.r.n. Report any changes in size, pain or symptoms like sudden, severe pain at the site for any signs of strangulation like redness swelling or inability to pass to fever, chills associated with the hernia promptly. DX & DISP Disposition: Discharge Departure Impression: Primary Impression: Dyspnea on exertion Additional Impression: Hernia Condition: Stable Scripts Hydrocodone/Acetaminophen (Hydrocodon-Acetaminophen 5-325) 5 Mg-325 Mg Tablet 1 TAB PO TIDP PRN for pain for 5 Days, #15 TAB 0 Refills Prov: ELIA SOL DO 07/14/24 Additional Instructions: Follow up with PCP within 2-3 days Monitor for worsening of symptoms like shortness of breath, chest pain, palpitations or swelling in the legs, chest pain or pressure, persistent coughing a new fever and seek immediate medical attention in such scenario. Advised to undergo further cardiac workup like 2D echo, stress test outpatient within 1 week to rule out cardiac causes for dyspnea Keep a track of oxygen saturation levels and notify your doctor if levels drop below 92% consistently Maintain a low-sodium diet Stay hydrated Avoid grzg-ock-uordkaf medications like ibuprofen and naproxen Avoid heavy lifting straining or vigorous activities that increase intra- abdominal pressure Continue using abdominal binder p.r.n. Report any changes in size, pain or symptoms like sudden, severe pain at the site for any signs of strangulation like redness swelling or inability to pass to fever, chills associated with the hernia promptly. Referrals: LUCRECIA WINTERS MD (PCP) ATTESTATION BY PHYSICIAN I performed a substantive portion of the visit. I have reviewed and personally made and approve the management plan that is documented in the notes by myself with GEORGES/resident. I acknowledged full responsibility for the patient's management plan. LYNNE LACY MD Jul 14, 2024 13:08 ELIA SOL DO Jul 15, 2024 17:07
--- NOTE | 2024-07-14 13:56 | EKG ---
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
[2024-07-14 14:14] LABS: BASOPHILS # (AUTO) 0.04 K/uL (0.00-0.20); BASOPHILS % (AUTO) 0.3 % (0.0-5.0); EOSINOPHILS # (AUTO) 0.04 K/uL (0.00-0.70); EOSINOPHILS % (AUTO) 0.3 % (0.0-8.0); HEMATOCRIT 39.5 % (42-54); IMMATURE GRANULOCYTE ABSOLUTE 0.28 K/uL (0-1); LYMPHOCYTES % (AUTO) 7.6 % (21.0-51.0); MEAN CORPUSCULAR HEMOGLOBIN 29.7 pg (27.0-33.0); MEAN CORPUSCULAR HGB CONC 32.2 g/dL (32.0-36.0); MEAN CORPUSCULAR VOLUME 92.3 fL (79-99); MONOCYTES # (AUTO) 0.8 K/uL (0.1-1.0); NEUTROPHILS # (AUTO) 10.8 K/uL (1.8-7.7); NEUTROPHILS % (AUTO) 83.6 % (40.0-77.0); PLATELET COUNT (AUTO) 186 K/uL (130-400); RED BLOOD CELL COUNT(AUTO) 4.28 MIL/uL (4.50-6.20); RED CELL DISTRIBUTION WIDTH 14.2 % (11.0-15.5); WHITE BLOOD COUNT (AUTO) 12.9 K/uL (4.8-10.8)
[2024-07-14 14:25] LABS: CREATININE 1.5 mg/dL (0.5-1.3); POTASSIUM 4.8 mmol/L (3.5-5.1)
[2024-07-14 14:33] LABS: B-TYPE NATRIURETIC PEPTIDE 116 pg/mL (0-100)
--- NOTE | 2024-07-14 14:38 | HMCIMG ---
CHEST 1VW REASON: CHEST PAIN COMPARISON: 02/11/2024 FINDINGS: Single view of the chest was obtained. Lungs are clear. Heart size is normal. There is no pulmonary vascular congestion. Mediastinum and bony thorax appear unremarkable. IMPRESSION: 1. Normal single view chest x-ray.
[2024-07-14 14:57] LABS: COVID19 (SARS ANTIGEN RAPID) PRESUMPTIVE NEGATIVE (NEGATIVE); INFLUENZA TYPE A Negative For Type A (NEGATIVE); INFLUENZA TYPE B Negative For Type B (NEGATIVE)
[2024-07-14] MEDS ORDERED: morPHINE 2 MG SYG IVP ONE (15:30)
[2024-07-14 15:33] LABS: APPEARANCE,URINE CLEAR (CLEAR); BILIRUBIN,URINE NEGATIVE (NEGATIVE); COLOR,URINE YELLOW (YELLOW); GLUCOSE, URINE (UA) NEGATIVE (NEGATIVE); KETONES,URINE 5 mg/dL (NEGATIVE); LEUKOCYTE ESTERASE ,URINE NEGATIVE Leu/uL (NEGATIVE); NITRATE,URINE NEGATIVE (NEGATIVE); OCCULT BLOOD,URINE NEGATIVE (NEGATIVE); PROTEIN,URINE 10 mg/dL (NEGATIVE)
[2024-07-14 15:35] LABS: ADD UA MICROSCOPIC YES
[2024-07-14 15:47] LABS: MUCUS,URINE RARE LPF (None Seen); RBC,URINE 0-1 /HPF (0-1); WBC,URINE 0-1 /HPF (0-1)
[2024-07-14] MEDS: morPHINE 2 MG SYG IM ONE (15:58)
--- NOTE | 2024-07-14 16:10 | NUR ---
ABD BINDER APPLIED, PT TOLERATED WELL
--- NOTE | 2024-07-14 16:24 | HMCIMG ---
CT ABDOMEN/PELVIS W/O CONTRAST REASON: pain, rt sided abdominal hernia COMPARISON: None. FINDINGS: Lung bases are clear. There are no focal liver lesions. [place] kidneys are markedly atrophic. There is a normal-appearing transplant kidney in the right lower quadrant.. Spleen and pancreas appear unremarkable. There has been a previous cholecystectomy. There is moderate sigmoid diverticulosis without evidence of diverticulitis. Bowel loops appear otherwise unremarkable. This includes normal appearance of the appendix There is no evidence of free fluid or intraperitoneal air. There are no focal fluid collections. There is calcification of the aorta without evidence of aneurysm or stenosis. Aorta and retroperitoneum appear otherwise normal as do pelvic soft tissue structures. The anterior abdominal wall is intact. Osseous structures appear unremarkable. There is a femoral to femoral artery graft visible in the lower pelvic subcutaneous soft tissues. IMPRESSION: 1. Atrophic [place] kidneys, there is a normal-appearing transplant kidney in right lower quadrant. 2. Moderate sigmoid diverticulosis without evidence of diverticulitis. 3. No acute finding in the abdomen or pelvis. CT was performed with one or more following dose reduction techniques: automated exposure control, adjustment of the mA and kv according to patient's size, or use of a iterative reconstruction technique.
[2024-07-14] MEDS ORDERED: HYDR-4060 PO (16:48)
[2024-07-14 17:38] VITALS: BP 134/65; PULSE 75; RESP 16; TEMP 98.4; O2SAT 99
== END 2024-07-14 17:43 | disposition home or self-care (01) ==
LOC: EDH 12:43
DX: R06.09 Other forms of dyspnea (principal); K46.9 Unspecified abdominal hernia without obstruction or gangrene; E11.9 Type 2 diabetes mellitus without complications; E78.00 Pure hypercholesterolemia, unspecified; I10 Essential (primary) hypertension; K57.30 Diverticulosis of large intestine without perforation or abscess without bleeding; Z20.822 Contact with and (suspected) exposure to COVID-19; Z79.52 Long term (current) use of systemic steroids; Z79.621 Long term (current) use of calcineurin inhibitor; Z79.624 Long term (current) use of inhibitors of nucleotide synthesis; Z79.82 Long term (current) use of aspirin; Z79.899 Other long term (current) drug therapy; Z90.49 Acquired absence of other specified parts of digestive tract; Z94.0 Kidney transplant status
CPT/HCPCS: 99284; 74176; 71045; 87426; 82550; 84484 ×2; 80048; 83880; 85025; 87804 ×2; 83605; 81001; 36415; 96372; 93005; 84145; J2270

== ENCOUNTER 2024-07-30 14:31 | Emergency (ER) | payer OTHER ==
[~2024-07-30] VITALS: Ht 175.3 cm; Wt 81.6 kg
[~2024-07-30 14:31] MED LIST changes: +HYDR-4060 PO
[2024-07-30 15:10] LABS: APPEARANCE,URINE CLEAR (CLEAR); BILIRUBIN,URINE NEGATIVE (NEGATIVE); COLOR,URINE YELLOW (YELLOW); GLUCOSE, URINE (UA) >=1000 mg/dL (NEGATIVE); KETONES,URINE NEGATIVE (NEGATIVE); LEUKOCYTE ESTERASE ,URINE NEGATIVE Leu/uL (NEGATIVE); NITRATE,URINE NEGATIVE (NEGATIVE); OCCULT BLOOD,URINE NEGATIVE (NEGATIVE); PH,URINE 6.5 (5.0-8.0); UROBILINOGEN,URINE 0.2 mg/dL (0.2-1.0)
[2024-07-30 15:20] LABS: ADD UA MICROSCOPIC YES; PROTEIN,URINE NEGATIVE (NEGATIVE)
[2024-07-30 15:22] LABS: MUCUS,URINE RARE LPF (None Seen); RBC,URINE 0-1 /HPF (0-1)
--- NOTE | 2024-07-30 16:05 | ERN ---
ED Note History of Present Illness Stated Complaint: SORES Chief Complaint: Penis Problem Time Seen by MD: 15:00 Dictation: DUPLICATE CHART Allergies: Coded Allergies: No Known Allergies (Verified Allergy, Unknown, 02/27/18) Home Meds Active Scripts Cephalexin Monohydrate (Keflex) 500 Mg Cap, 500 MG PO BID for 7 Days, #14 CAP Prov:MILLY YOUNGBLOOD MD 07/30/24 Hydrocodone/Acetaminophen (Hydrocodon-Acetaminophen 5-325) 5 Mg-325 Mg Tablet, 1 TAB PO TIDP PRN for pain for 5 Days, #15 TAB 0 Refills Prov:ELIA SOL DO 07/14/24 Reported Medications Tacrolimus (Tacrolimus) 1 Mg Capsule, 1 MG PO HS, CAP 02/09/24 Tamsulosin HCl (Flomax) 0.4 Mg Cap.er.24h, 0.4 MG PO AM 02/09/24 Melatonin (Melatonin) 3 Mg Tablet, 15 MG PO HS, TAB 11/24/23 Sitagliptin Phosphate (Januvia) 25 Mg Tablet, 25 MG PO DAILYBKFST, TAB 11/24/23 Isosorbide Mononitrate (Isosorbide Mononitrate ER) 30 Mg Tab.er.24h, 30 MG PO DAILY, TAB 11/24/23 Insulin Lispro (Humalog Kwikpen) 200 Unit/Ml (3 Ml) Insuln.pen, 200 UNIT SQ AD, SYRINGE 11/24/23 Gabapentin (Gabapentin) 100 Mg Capsule, 100 MG PO TID, CAP 11/24/23 Clonidine HCl (Clonidine HCl) 0.3 Mg Tablet, 0.3 MG PO TID, TAB 11/24/23 Insulin Glargine,Hum.rec.anlog (Toujeo Max Solostar) 300 Unit/Ml (3 Ml) Insuln.pen, 30 UNIT SQ DAILYBKFST, SYRINGE 11/24/23 Tacrolimus (Tacrolimus) 1 Mg Capsule, 2 MG PO DAILY, CAP 11/24/23 Sulfamethoxazole/Trimethoprim (Bactrim 400-80 mg Tablet) 400 Mg-80 Mg Tablet, 1 TAB PO DAILY, TAB 11/24/23 Sennosides/Docusate Sodium (Senna-Docusate Sodium Tablet) 8.6 Mg-50 Mg Tablet, 1 EACH PO DAILY PRN for CONSTIPATION, TAB 11/24/23 Prednisone (Prednisone) 10 Mg Tablet, 5 MG PO DAILY, TAB 11/24/23 Mycophenolate Sodium (Myfortic) 360 Mg Drtab, 720 MG PO BID, TAB 11/24/23 Metoprolol Tartrate (Metoprolol Tartrate) 25 Mg Tablet, 12.5 MG PO BID, TAB 11/24/23 Methocarbamol (Methocarbamol) 500 Mg Tablet, 500 MG PO Q4HPRN PRN for PAIN LEVEL 1 TO 5, TAB 11/24/23 Aspirin (ASPIRIN 81MG CHEW TAB) 81 Mg Tab.chew, 81 MG PO DAILY, TAB.CHEW 11/24/23 Valganciclovir HCl (Valganciclovir HCl) 450 Mg Tablet, 450 MG PO DAILY, TAB 11/24/23 Pantoprazole Sodium (Pantoprazole Sodium) 40 Mg Tablet.dr, 40 MG PO DAILY, TAB 10/13/21 Folic Acid/Vitamin B Comp W-C (Zenia-Devante Tablet) 0.8 Mg Tablet, 0.8 MG PO DAILY, TAB 10/13/21 Atorvastatin Calcium (Atorvastatin Calcium) 20 Mg Tablet, 40 MG PO HS, TAB 06/09/19 Amlodipine Besylate (Amlodipine Besylate) 5 Mg Tablet, 10 MG PO DAILY, TAB 02/28/18 Past Medical History Past Medical History: Depression, Diabetes-Type II, High Cholesterol, Hypertension, Renal Disese Additional Past Medical Hx: ABDOMINAL HERNIA Surgical History: Appendectomy, Other Surgical History Other: KIDNEY TRANSPLANT Social History: Negative, Lives with family Review of System Dictation DUPLICATE CHART Initial Vital Sign VS Vital Signs Date Time Temp Pulse Resp B/P (MAP) Pulse Ox O2 Delivery O2 Flow Rate FiO2 07/30/24 14:47 98.1 69 16 156/65 98 Room Air 0 07/30/24 16:12 21 Physical Exam Dictation DUPLICATE CHART Results (Laboratory/Radiology) Laboratory/Radiology Laboratory Tests Test 07/30/24 14:56 Urine Color YELLOW (YELLOW) Urine Appearance CLEAR (CLEAR) Urine pH 6.5 (5.0-8.0) Urine Specific [place] 1.018 (1.001-1.031) Urine Protein NEGATIVE mg/dL (NEGATIVE) Urine Glucose (UA) >=1000 mg/dL (NEGATIVE) H Urine Ketones NEGATIVE mg/dL (NEGATIVE) Urine Occult Blood NEGATIVE (NEGATIVE) Urine Nitrate NEGATIVE (NEGATIVE) Urine Bilirubin NEGATIVE mg/dL (NEGATIVE) Urine Urobilinogen 0.2 mg/dL (0.2-1.0) Urine Leukocyte Esterase NEGATIVE Sha/uL Urine RBC 0-1 /HPF (0-1) Urine WBC None /HPF (0-1) Urine Bacteria None /HPF (None Seen) ED Course ED Course Orders Procedure Category Date Status Time Urinalysis Profile LAB 07/30/24 Complete 14:53 Vital Signs Date Time Temp Pulse Resp B/P (MAP) Pulse Ox O2 Delivery O2 Flow Rate FiO2 07/30/24 16:12 98.2 72 17 115/60 96 Room Air* 0 21 07/30/24 14:47 98.1 69 16 156/65 98 Room Air 0 Medical Decision Making MDM DUPLICATE CHART DX & DISP Disposition: Other(Comment) (DUPLICATE CHART) Departure Impression: Primary Impression: Lesion of penis Condition: Stable Scripts Cephalexin Monohydrate (Keflex) 500 Mg Cap 500 MG PO BID for 7 Days, #14 CAP Prov: MILLY YOUNGBLOOD MD 07/30/24 Referrals: LUCRECIA WINTERS MD (PCP) MILLY YOUNGBLOOD MD Jul 30, 2024 16:05
[2024-07-30] MEDS ORDERED: CEPH500B PO (16:08)
--- NOTE | 2024-07-30 16:08 | ERN ---
ED Note History of Present Illness Stated Complaint: SORES Chief Complaint: Penis Problem Time Seen by MD: 15:00 Dictation: 69-year-old male presents to the ED for evaluation of penile sores onset four days ago. Patient denies pain, drainage or any other associated symptoms at this time. Patient has history of kidney transplant one year ago and is on immunosuppressants. Allergies: Coded Allergies: No Known Allergies (Verified Allergy, Unknown, 02/27/18) Home Meds Active Scripts Cephalexin Monohydrate (Keflex) 500 Mg Cap, 500 MG PO BID for 7 Days, #14 CAP Prov:MILLY YOUNGBLOOD MD 07/30/24 Hydrocodone/Acetaminophen (Hydrocodon-Acetaminophen 5-325) 5 Mg-325 Mg Tablet, 1 TAB PO TIDP PRN for pain for 5 Days, #15 TAB 0 Refills Prov:ELIA SOL DO 07/14/24 Reported Medications Tacrolimus (Tacrolimus) 1 Mg Capsule, 1 MG PO HS, CAP 02/09/24 Tamsulosin HCl (Flomax) 0.4 Mg Cap.er.24h, 0.4 MG PO AM 02/09/24 Melatonin (Melatonin) 3 Mg Tablet, 15 MG PO HS, TAB 11/24/23 Sitagliptin Phosphate (Januvia) 25 Mg Tablet, 25 MG PO DAILYBKFST, TAB 11/24/23 Isosorbide Mononitrate (Isosorbide Mononitrate ER) 30 Mg Tab.er.24h, 30 MG PO DAILY, TAB 11/24/23 Insulin Lispro (Humalog Kwikpen) 200 Unit/Ml (3 Ml) Insuln.pen, 200 UNIT SQ AD, SYRINGE 11/24/23 Gabapentin (Gabapentin) 100 Mg Capsule, 100 MG PO TID, CAP 11/24/23 Clonidine HCl (Clonidine HCl) 0.3 Mg Tablet, 0.3 MG PO TID, TAB 11/24/23 Insulin Glargine,Hum.rec.anlog (Toujeo Carroll Solostar) 300 Unit/Ml (3 Ml) Insuln.pen, 30 UNIT SQ DAILYBKFST, SYRINGE 11/24/23 Tacrolimus (Tacrolimus) 1 Mg Capsule, 2 MG PO DAILY, CAP 11/24/23 Sulfamethoxazole/Trimethoprim (Bactrim 400-80 mg Tablet) 400 Mg-80 Mg Tablet, 1 TAB PO DAILY, TAB 11/24/23 Sennosides/Docusate Sodium (Senna-Docusate Sodium Tablet) 8.6 Mg-50 Mg Tablet, 1 EACH PO DAILY PRN for CONSTIPATION, TAB 11/24/23 Prednisone (Prednisone) 10 Mg Tablet, 5 MG PO DAILY, TAB 11/24/23 Mycophenolate Sodium (Myfortic) 360 Mg Drtab, 720 MG PO BID, TAB 11/24/23 Metoprolol Tartrate (Metoprolol Tartrate) 25 Mg Tablet, 12.5 MG PO BID, TAB 11/24/23 Methocarbamol (Methocarbamol) 500 Mg Tablet, 500 MG PO Q4HPRN PRN for PAIN LEVEL 1 TO 5, TAB 11/24/23 Aspirin (ASPIRIN 81MG CHEW TAB) 81 Mg Tab.chew, 81 MG PO DAILY, TAB.CHEW 11/24/23 Valganciclovir HCl (Valganciclovir HCl) 450 Mg Tablet, 450 MG PO DAILY, TAB 11/24/23 Pantoprazole Sodium (Pantoprazole Sodium) 40 Mg Tablet.dr, 40 MG PO DAILY, TAB 10/13/21 Folic Acid/Vitamin B Comp W-C (Zenia-Devante Tablet) 0.8 Mg Tablet, 0.8 MG PO DAILY, TAB 10/13/21 Atorvastatin Calcium (Atorvastatin Calcium) 20 Mg Tablet, 40 MG PO HS, TAB 06/09/19 Amlodipine Besylate (Amlodipine Besylate) 5 Mg Tablet, 10 MG PO DAILY, TAB 02/28/18 Past Medical History Past Medical History: Depression, Diabetes-Type II, High Cholesterol, Hyperte nsion, Renal Disese Additional Past Medical Hx: ABDOMINAL HERNIA Surgical History: Appendectomy, Other Surgical History Other: KIDNEY TRANSPLANT Social History: Negative, Lives with family Review of System Dictation Constitutional: Negative for fever,chills, and weight loss Eyes: Negative for injury, pain,redness, and discharge ENT: Negative for injury,pain or swelling Cardiovascular: Negative for chest pain, palpitations, and edema Respiratory: Negative for shortness of breath, cough, and wheezing, Abdomen/GI: Negative for abdominal pain, nausea, vomiting, diarrhea, and constipation Back: Negative for injury and pain : Negative for injury, bleeding and discharge MS/Extremity: Negative for injury and deformity Skin: Negative for rash, and discoloration : Penile sores Neuro: Negative for headache, weakness, numbness, tingling, and seizure Psych: Negative for suicide ideation, homicidal ideation, and hallucinations Initial Vital Sign VS Vital Signs Date Time Temp Pulse Resp B/P (MAP) Pulse Ox O2 Delivery O2 Flow Rate FiO2 07/30/24 14:47 98.1 69 16 156/65 98 Room Air 0 07/30/24 16:12 21 Physical Exam Dictation General: awake, alert, NAD Head/Face: Normocephalic, atraumatic Eyes: PERRL, EOMI, vision at baseline ENT: oral cavity clear, TMs clear, no signs of infection Neck: Trachea midline, supple, no nuchal rigidity Cardiovascular: RRR, normal S1/S2, No MRGs, no JVD Respiratory: CTAB, no respiratory distress, No rales or wheezes Abdomen: Soft, non-tender, non-distended, normal bowel sounds, no guarding or rebound. Skin: Warm, dry, normal turgor, no rash : Multiple small open ulcerative lesions to penile shaft MS/Extremity: Pulses equal, no cyanosis, neurovascular intact, FROM Neuro: COAx4, GCS 15, strength 5/5, CN 2-12 intact, normal cerebellar exam, normal gait, Psych: Normal behavior, mood, and affect normal Results (Laboratory/Radiology) Laboratory/Radiology Laboratory Tests Test 07/30/24 14:56 Urine Color YELLOW (YELLOW) Urine Appearance CLEAR (CLEAR) Urine pH 6.5 (5.0-8.0) Urine Specific [place] 1.018 (1.001-1.031) Urine Protein NEGATIVE mg/dL (NEGATIVE) Urine Glucose (UA) >=1000 mg/dL (NEGATIVE) H Urine Ketones NEGATIVE mg/dL (NEGATIVE) Urine Occult Blood NEGATIVE (NEGATIVE) Urine Nitrate NEGATIVE (NEGATIVE) Urine Bilirubin NEGATIVE mg/dL (NEGATIVE) Urine Urobilinogen 0.2 mg/dL (0.2-1.0) Urine Leukocyte Esterase NEGATIVE Sha/uL Urine RBC 0-1 /HPF (0-1) Urine WBC None /HPF (0-1) Urine Bacteria None /HPF (None Seen) Labs Reviewed?: Yes ED Course ED Course Orders Procedure Category Date Status Time Urinalysis Profile LAB 07/30/24 Complete 14:53 Vital Signs Date Time Temp Pulse Resp B/P (MAP) Pulse Ox O2 Delivery O2 Flow Rate FiO2 07/30/24 16:12 98.2 72 17 115/60 96 Room Air* 0 21 07/30/24 14:47 98.1 69 16 156/65 98 Room Air 0 Medical Decision Making MDM MDM: Differential diagnosis: Lesion of penis, herpes Risk of complication and/or morbidity or mortality of patient management: None Medications-Per medication reconciliation Need for hospitalization: Patient does not meet criteria for hospitalization. Need for emergency major/minor surgery: No There are no social concerns with this patient. Prescription drug management Prescriptions will include symptomatic care Medical management and examination interpretation discussions were had by me with other qualified healthcare professionals as indicated for the patient's care. DX & DISP Disposition: Discharge Departure Impression: Primary Impression: Lesion of penis Additional Impression: Herpes genitalis in men Condition: Stable Scripts Cephalexin Monohydrate (Keflex) 500 Mg Cap 500 MG PO BID for 7 Days, #14 CAP Prov: MILLY YOUNGBLOOD MD 07/30/24 Referrals: LUCRECIA WINTERS MD (PCP) MILLY YOUNGBLOOD MD Jul 30, 2024 16:08
[2024-07-30 16:12] VITALS: BP 115/60; PULSE 72; RESP 17; TEMP 98.2; O2SAT 96
== END 2024-07-30 16:21 | disposition home or self-care (01) ==
LOC: EDH 14:31
DX: A60.02 Herpesviral infection of other male genital organs (principal); N48.9 Disorder of penis, unspecified; E11.9 Type 2 diabetes mellitus without complications; E78.00 Pure hypercholesterolemia, unspecified; I10 Essential (primary) hypertension; Z79.52 Long term (current) use of systemic steroids; Z79.621 Long term (current) use of calcineurin inhibitor; Z79.624 Long term (current) use of inhibitors of nucleotide synthesis; Z79.82 Long term (current) use of aspirin; Z79.899 Other long term (current) drug therapy; Z90.49 Acquired absence of other specified parts of digestive tract; Z94.0 Kidney transplant status
CPT/HCPCS: 81001; 99282